=== PATIENT | male | born 1985 | race Caucasian/White ===

== ENCOUNTER 2016-05-29 19:15 | Inpatient (IN) | payer OTHER ==
[~2016-05-29] VITALS: Ht 175.3 cm; Wt 217.7 kg
[~2016-05-29 19:15] MED LIST: ALBU8.5H4 INH; AMLO5TAB4 PO; ARIP30TA PO; BRIM5DRO3 RIGHTEYE; BUPR100T5 PO; CHLO10TA5 PO; CLON0.12 PO; DIVA250T4 PO; DOCU-25 PO; FOLI1CAP7 PO; HYDR25SU13 RC; SULF1TAB48 PO; TIMO5DRO31 RIGHTEYE; TRAZ150T75 PO
--- NOTE | 2016-05-29 19:29 | NUR ---
called for triage; sleeping.
--- NOTE | 2016-05-29 20:00 | NUR ---
31 YO MALE BB SE;F. PT IS ALRET X 3, C/O RIGHT LOWER LEG PAIN. STATES THE PAIN IS CHRONIC IN NATURE S/O ACCIDENT THAT HAPPENED2 YEARS AGO. NOTED DEFORMITIES RIGHT LOWER LEG. SKIN WARM AND DRY, RR EVEN AND UNLAORED. AWAITING ORDERS FROM PROVIDER
[2016-05-29] MEDS ORDERED: VANCOMYCIN 1 GM in IV D5W 250 ML IV ONE (21:00)
[2016-05-29] MEDS ORDERED: PIPERACILLIN /TAZOBACTAM 3.375 G in IV D5W 50 ML IV ONE (21:00)
[2016-05-29 21:02] LABS: BASOPHILS # (AUTO) 0.2 /CMM (0.0-0.2); BASOPHILS % (AUTO) 2.4 % (0.0-2.0); EOSINOPHILS # (AUTO) 0.1 /CMM (0.0-0.7); EOSINOPHILS % (AUTO) 0.9 % (0.0-6.0); HEMATOCRIT 45 % (39-51); HEMOGLOBIN 14.4 g/dL (13.5-17.5); LYMPHOCYTES # (AUTO) 1.5 /CMM (0.8-4.8); LYMPHOCYTES % (AUTO) 18.1 % (20.0-44.0); MEAN CORPUSCULAR HEMOGLOBIN 26 PG (26.0-33.0); MEAN CORPUSCULAR HGB CONC 32 g/dl (31.0-36.0); MEAN CORPUSCULAR VOLUME 81 fL (80-96); MONOCYTES # (AUTO) 0.7 /CMM (0.1-1.30); MONOCYTES % (AUTO) 8.3 % (2.0-12.0); NEUTROPHILS # (AUTO) 5.9 /CMM (1.8-8.9); NEUTROPHILS % (AUTO) 70.3 % (43.0-81.0); PLATELET COUNT (AUTO) 179 /CMM (150-450); RDW COEFFICIENT OF VARIATION 15.4 (11.5-15.0); RED BLOOD CELL COUNT(AUTO) 5.58 MIL/uL (4.5-6.0); WHITE BLOOD COUNT (AUTO) 8.4 K/uL (4.3-11.0)
[2016-05-29] MEDS ORDERED: IV D5W 50 ML IV ONE (21:05)
[2016-05-29] MEDS ORDERED: IV D5W 250 ML IV ONE (21:05)
[2016-05-29] MEDS ORDERED: PIPERACILLIN /TAZOBACTAM 3.375 G VIAL IV ONE (21:05)
[2016-05-29] MEDS ORDERED: VANCOMYCIN 1 GM VIAL ONE (21:05)
[2016-05-29] MEDS ORDERED: IV SET PRIMARY PUMP SET 1 EA INFUS.SET MC ONE (21:05)
[2016-05-29 21:11] LABS: CALCIUM, SERUM 9.1 mg/dL (8.5-10.1); CREATININE 0.9 mg/dL (0.6-1.3); POTASSIUM 3.9 mmol/L (3.5-5.1)
[2016-05-29 21:15] LABS: INR 0.92 (0.87-1.13); PROTHROMBIN TIME 9.6 SECS (9.5-12.7)
--- NOTE | 2016-05-29 21:15 | NUR ---
GOING TO M/S BED 318
--- NOTE | 2016-05-29 21:20 | NUR ---
22G LEFT WRIST IV STARTED. MEDICTED PT ORDERED
[2016-05-29] MEDS ORDERED: diphenhydrAMINE HCL 50 MG/ML VIAL IV ONE (22:00)
[2016-05-29 22:15] VITALS: BP 133/74
[2016-05-29] MEDS ORDERED: ACETAMINOPHEN 325 MG TABLET PO PRN (22:30)
[2016-05-29] MEDS ORDERED: ONDANSETRON HCL/PF 4 MG/2 ML VIAL IVP PRN (22:30)
[2016-05-29] MEDS ORDERED: ZOLPIDEM TARTRATE 5 MG TABLET PO PRN (22:30)
[2016-05-29] MEDS ORDERED: DIVA500T2 PO (23:03)
[2016-05-29] MEDS ORDERED: ATOR20TA PO (23:03)
[2016-05-29] MEDS ORDERED: GABA-534 PO (23:03)
[2016-05-29] MEDS ORDERED: BUPR150T5 PO (23:03)
[2016-05-29] MEDS ORDERED: TRAZ-144 PO (23:03)
[2016-05-29] MEDS ORDERED: NAPR375T3 PO (23:03)
[2016-05-29] MEDS ORDERED: ARIP30TA PO (23:03)
[2016-05-29] MEDS ORDERED: HYDR12.55 PO (23:03)
[2016-05-29] MEDS ORDERED: LISI-607 PO (23:03)
[2016-05-29] MEDS ORDERED: CLON0.5T PO (23:03)
[2016-05-29] MEDS ORDERED: BENZ2TAB7 PO (23:03)
[2016-05-29] MEDS ORDERED: AMLO10TA4 PO (23:03)
[2016-05-29] MEDS ORDERED: BRIM5DRO3 EACHEYE (23:06)
[2016-05-29] MEDS ORDERED: ALBU2.5V38 IH (23:06)
[2016-05-29] MEDS ORDERED: TIMO5DRO4 EACHEYE (23:06)
[2016-05-29] MEDS ORDERED: ASPI-605 PO (23:06)
[2016-05-29] MEDS ORDERED: DOCU-25 PO (23:06)
[2016-05-29] MEDS ORDERED: IPRA12.9 IH (23:06)
[2016-05-29] MEDS ORDERED: NAPROXEN 375 MG TABLET PO PRN (23:30)
[2016-05-29] MEDS ORDERED: clonazePAM 0.5 MG TABLET PO PRN (23:30)
[2016-05-29] MEDS ORDERED: buPROPion SR 150 MG TABLET.ER PO ONE (23:47)
[2016-05-29] MEDS ORDERED: DIVALPROEX SODIUM 500 MG TABLET.DR PO ONE (23:48)
[2016-05-29] MEDS ORDERED: TRAZODONE 50 MG TABLET ONE (23:49)
[2016-05-29] MEDS ORDERED: clonazePAM 0.5 MG TABLET ONE (23:49)
[2016-05-29] MEDS: DIVALPROEX SODIUM 500 MG TABLET.DR PO SCH (23:55)
[2016-05-29] MEDS: buPROPion SR 150 MG TABLET.ER PO SCH (23:55)
[2016-05-29] MEDS: TRAZODONE 50 MG TABLET PO SCH (23:56)
[2016-05-30] MEDS ORDERED: HYDROCODONE/APAP 5/325MG 1 EACH TABLET ONE (01:50)
[2016-05-30] MEDS: HYDROCODONE/APAP 5/325MG 1 EACH TABLET PO PRN ×2 (01:54→11:28)
[2016-05-30] MEDS: PIPERACILLIN /TAZOBACTAM 3.375 G in IV D5W 50 ML IV SCH ×3 (03:00→05:45)
[2016-05-30] MEDS ORDERED: IV D5W 50 ML IV ONE (03:17)
[2016-05-30] MEDS ORDERED: PIPERACILLIN /TAZOBACTAM 3.375 G VIAL IV ONE (03:17)
[2016-05-30] MEDS ORDERED: SECONDARY IV SET 1 EA INFUS.SET MC ONE ×2 (03:17→13:16)
[2016-05-30] MEDS ORDERED: IV NS 0.9% 250 ML IV ONE ×2 (03:18→13:15)
[2016-05-30] MEDS ORDERED: IV SET PRIMARY PUMP SET 1 EA INFUS.SET MC ONE ×2 (03:18→13:15)
--- NOTE | 2016-05-30 06:00 | NUR ---
MS RN NOTES PT REFUSING HIS ZOSYN. PT SAID HIS THROAT IS ITCHING WITH ZOSYN AND GETS SOB. LAKEISHA SHIPPING ORDER CLERK SPOT FACER FOR [facility] NOTIFIED. WILL CHANGE ORDERS PER SHIPPING ORDER CLERK. WILL CONTINUE TO MONITOR.
[2016-05-30] MEDS ORDERED: SULFAMETHOXAZOLE/TRIMETHOPRIM 5 ML in IV D5W 250 ML IV SCH (06:30)
--- NOTE | 2016-05-30 06:47 | NUR ---
MS RN NOTES AWAKE & RESPONSIVE. NOT IN ANY DISTRESS. NO SOB NOTED. DENIES ANY PAIN OR DISCOMFORT AT THIS TIME. MONITORED ACCORDINGLY. CALL LIGHT WITHIN REACH. BED IN LOWEST POSITION. SR UP X 3 FOR SAFETY WITH BED ALARM ON. WILL ENDORSE TO NEXT SHIFT.
[2016-05-30 07:18] LABS: BASOPHILS % (AUTO) 0.4 % (0.0-2.0); EOSINOPHILS # (AUTO) 0.1 /CMM (0.0-0.7); EOSINOPHILS % (AUTO) 1.3 % (0.0-6.0); HEMATOCRIT 40 % (39-51); HEMOGLOBIN 12.9 g/dL (13.5-17.5); LYMPHOCYTES # (AUTO) 1.4 /CMM (0.8-4.8); MEAN CORPUSCULAR HEMOGLOBIN 26 PG (26.0-33.0); MEAN CORPUSCULAR HGB CONC 33 g/dl (31.0-36.0); MEAN CORPUSCULAR VOLUME 81 fL (80-96); MONOCYTES # (AUTO) 0.5 /CMM (0.1-1.30); MONOCYTES % (AUTO) 7.7 % (2.0-12.0); NEUTROPHILS # (AUTO) 4.9 /CMM (1.8-8.9); NEUTROPHILS % (AUTO) 70.6 % (43.0-81.0); PLATELET COUNT (AUTO) 173 /CMM (150-450); RDW COEFFICIENT OF VARIATION 16.3 (11.5-15.0); RED BLOOD CELL COUNT(AUTO) 4.89 MIL/uL (4.5-6.0)
[2016-05-30 07:29] LABS: CALCIUM, SERUM 8.7 mg/dL (8.5-10.1); CREATININE 0.8 mg/dL (0.6-1.3); MAGNESIUM 1.8 mg/dL (1.8-2.4); PHOSPHORUS 4.7 mg/dL (2.5-4.9)
--- NOTE | 2016-05-30 07:30 | NUR ---
MS NURSE OPENING NOTES RECEIVED REPORT FROM NIGHT NURSE. PATIENT RESTING IN BED. SIDE RAILS UP, CALL LIGHTS WITHIN REACH. NO SIGNS OF DISTRESS. WILL CONTINUE PLAN OF CARE FOR THE REST OF THE DAY.
[2016-05-30 08:00] VITALS: BP 130/69
[2016-05-30] MEDS ORDERED: VANCOMYCIN 1 GM in IV D5W 250 ML IV SCH (09:00)
--- NOTE | 2016-05-30 10:00 | NUR ---
WOUND CARE CONSULT: PATIENT SEEN AND SKIN ASSESSMENT DONE. PATIENT ALERT, ORIENTED, CONTINENT, AMBULATORY, INDEPENDENT WITH BED MOBILITY, MEENA 18, WEIGHS 427 LBS. NURSING STAFF ORDERED BARIMAXX BED II AND WILL BE PLACED WHEN AVAILABLE IN THE UNIT. SEE TODAY'S SKIN ASSESSMENT IN PCS ALONG WITH RECOMMENDATIONS DISCUSSED WITH NURSING STAFF. MD IN AGREEMENT WITH PLAN OF CARE. Addendum: 05/30/16 at 1006 by SHAWNA PIERCE WNDNU Amended: Links added.
[2016-05-30] MEDS ORDERED: FEE PK DOSING 1 MIN EA MC ONE (10:11)
[2016-05-30] MEDS ORDERED: NAPROXEN 375 MG TABLET PO PRN (10:57)
[2016-05-30] MEDS ORDERED: VANCOMYCIN 1.25 GM in IV D5W 500 ML IV SCH (11:00)
[2016-05-30] MEDS: buPROPion SR 150 MG TABLET.ER PO SCH ×2 (11:22→17:47)
[2016-05-30] MEDS: PANTOPRAZOLE 40 MG TABLET.DR PO SCH (11:22)
[2016-05-30] MEDS: DIVALPROEX SODIUM 500 MG TABLET.DR PO SCH (11:23)
[2016-05-30] MEDS: ASPIRIN EC 81 MG TABLET.DR PO SCH (11:24)
[2016-05-30] MEDS: VIT B CMPLX 3/FA/VIT C/BIOTIN 1 TAB TABLET PO SCH (11:24)
[2016-05-30] MEDS: HYDROCHLOROTHIAZIDE 25 MG TABLET PO SCH ×3 (11:26→17:46)
[2016-05-30] MEDS: SULFAMETH/TRIMETH 800/160 MG 1 UDTAB TABLET PO SCH ×3 (11:27→20:35)
[2016-05-30] MEDS: LISINOPRIL (5MG) 5 MG TABLET PO SCH (11:27)
[2016-05-30] MEDS: DOCUSATE SODIUM 100 MG CAPSULE PO SCH ×2 (11:29→17:47)
[2016-05-30] MEDS: GABAPENTIN 300 MG CAPSULE PO SCH ×3 (11:29→17:46)
[2016-05-30] MEDS: AMLODIPINE BESYLATE 10 MG TABLET PO SCH (11:34)
[2016-05-30] MEDS: BENZTROPINE MESYLATE (1 MG) 1 MG TABLET PO SCH (11:35)
[2016-05-30] MEDS: UREA 10% -AHA 4% CREAM 57 GM TUBE TP SCH ×2 (11:44→17:50)
[2016-05-30] MEDS: TIMOLOL 0.5% SOLN OPHTH 5 ML BOTTLE EACHEYE SCH ×2 (11:45→17:48)
[2016-05-30] MEDS: Z GUARD REMEDY 2 OZ OINT TP PRN ×2 (11:47→17:48)
[2016-05-30] MEDS ORDERED: DIVALPROEX SODIUM 500 MG TABLET.DR PO SCH (13:00)
[2016-05-30] MEDS ORDERED: IPRATROPIUM NEB FS 0.5 MG/2.5 ML AMPUL.NEB NEB PRN (13:00)
[2016-05-30] MEDS ORDERED: ALBUTEROL FS 2.5 MG/3 ML VIAL.NEB NEB PRN (13:30)
[2016-05-30 16:00] VITALS: BP 104/76
[2016-05-30] MEDS: BRIMONIDINE TARTRATE OPHT SOLN 5 ML BOTTLE OP SCH (17:39)
--- NOTE | 2016-05-30 19:05 | NUR ---
RN NOTE RECEIVED REPORT. PT AAOX4, NO C/O OF PAIN OR DISCOMFORT AT THIS TIME. BREATHING EVEN AND NON-LABORED. BOUCHRA ML INTACT AND PATENT. HOB ELEVATED 30 DEGREES. NO DISTRESS - CALL LIGHT IN REACH, WILL CONT TO MONITOR.
[2016-05-30 20:00] VITALS: BP 124/79
[2016-05-30] MEDS: TRAZODONE 50 MG TABLET PO SCH (21:28)
[2016-05-30] MEDS ORDERED: ARIPIPRAZOLE 5 MG TABLET PO SCH (22:00)
[2016-05-30] MEDS ORDERED: ATORVASTATIN 10 MG TABLET PO SCH (22:00)
--- NOTE | 2016-05-31 01:55 | NUR ---
RN NOTE PT RESTING COMFORTABLY IN BED. NO DISTRESS NOTED. WILL MONITOR.
--- NOTE | 2016-05-31 04:45 | NUR ---
RN NOTE PT C/O CHEST PAIN 5/10 THAT RADIATES DOWN ARM, FEELS TINGLING. BP 115/60, 87, 98%. MD AWARE. ORDERS CARRIED OUT. EKG STAT. RT PAGED.
[2016-05-31] MEDS ORDERED: MORPHINE SULFATE INJ 2 MG/ML DISP.SYRIN ONE (04:52)
[2016-05-31] MEDS ORDERED: MORPHINE SULFATE INJ 2 MG/ML DISP.SYRIN IV PRN (05:00)
--- NOTE | 2016-05-31 05:00 | NUR ---
RN NOTE EKG RESULTED E - SR. MORPHINE 2 MG GIVEN IV, WITH POSITIVE EFFECT. PT NOT C/O CP OR SOB. NON-DIAPHORETIC ON 3L NC. WILL CONT TO MONITOR. TROP BLOOD LEVEL WILL BE DRAWN SOON.
--- NOTE | 2016-05-31 06:02 | NUR ---
RN NOTE 0500 PRN MORPHINE EFFECTIVE. PT DENIES CP/SOB, NO TINGLING IN ARM. SKIN WARM TO TOUCH, NON-DIAPHORETIC. BREATHING EVEN AND NON-LABORED. ON 3L NC, SATTING WELL. L UA ML INTACT AND PATENT. WOUND CARE COMPLETE, SAFETY MEASURES RENDERED. PT AWARE ABOUT BEDSIDE DEBRIDEMENT TODAY. ALL NEEDS ATTENDED TO, WILL F/U WITH DAYS SHIFT FOR PREETI.
[2016-05-31 06:59] LABS: CALCIUM, SERUM 8.6 mg/dL (8.5-10.1); CREATININE 0.9 mg/dL (0.6-1.3); POTASSIUM 4.1 mmol/L (3.5-5.1)
[2016-05-31 07:02] LABS: BASOPHILS % (AUTO) 0.2 % (0.0-2.0); EOSINOPHILS # (AUTO) 0.1 /CMM (0.0-0.7); EOSINOPHILS % (AUTO) 1.5 % (0.0-6.0); HEMATOCRIT 40 % (39-51); HEMOGLOBIN 12.6 g/dL (13.5-17.5); LYMPHOCYTES # (AUTO) 1.4 /CMM (0.8-4.8); LYMPHOCYTES % (AUTO) 25.8 % (20.0-44.0); MEAN CORPUSCULAR HEMOGLOBIN 26 PG (26.0-33.0); MEAN CORPUSCULAR HGB CONC 32 g/dl (31.0-36.0); MEAN CORPUSCULAR VOLUME 81 fL (80-96); MONOCYTES # (AUTO) 0.4 /CMM (0.1-1.30); MONOCYTES % (AUTO) 7.8 % (2.0-12.0); NEUTROPHILS # (AUTO) 3.5 /CMM (1.8-8.9); NEUTROPHILS % (AUTO) 64.7 % (43.0-81.0); PLATELET COUNT (AUTO) 185 /CMM (150-450); RDW COEFFICIENT OF VARIATION 15.7 (11.5-15.0); RED BLOOD CELL COUNT(AUTO) 4.92 MIL/uL (4.5-6.0); WHITE BLOOD COUNT (AUTO) 5.4 K/uL (4.3-11.0)
--- NOTE | 2016-05-31 07:30 | NUR ---
PT RECEIVED RESTING COMFORTABLY IN BED WITH EYES CLOSED. NO S/S OR C/O PAIN OR DISTRESS NOTED. SIDE RAILS UP X2, CALL LIGHT LEFT WITHIN REACH. WILL CONTINUE PLAN OF CARE.
[2016-05-31 08:00] VITALS: BP 114/66
[2016-05-31] MEDS ORDERED: HYDROGEL DRESSING 90 GM TUBE TP SCH (09:00)
[2016-05-31] MEDS: VIT B CMPLX 3/FA/VIT C/BIOTIN 1 TAB TABLET PO SCH (09:18)
[2016-05-31] MEDS: SULFAMETH/TRIMETH 800/160 MG 1 UDTAB TABLET PO SCH ×2 (09:18→12:16)
[2016-05-31] MEDS: DOCUSATE SODIUM 100 MG CAPSULE PO SCH (09:18)
[2016-05-31] MEDS: AMLODIPINE BESYLATE 10 MG TABLET PO SCH (09:19)
[2016-05-31] MEDS: LISINOPRIL (5MG) 5 MG TABLET PO SCH (09:19)
[2016-05-31] MEDS: ASPIRIN EC 81 MG TABLET.DR PO SCH (09:19)
[2016-05-31] MEDS: GABAPENTIN 300 MG CAPSULE PO SCH ×2 (09:20→12:16)
[2016-05-31] MEDS: HYDROCHLOROTHIAZIDE 25 MG TABLET PO SCH ×2 (09:20→12:25)
[2016-05-31] MEDS: buPROPion SR 150 MG TABLET.ER PO SCH (09:21)
[2016-05-31] MEDS: BENZTROPINE MESYLATE (1 MG) 1 MG TABLET PO SCH (09:26)
[2016-05-31] MEDS: TIMOLOL 0.5% SOLN OPHTH 5 ML BOTTLE EACHEYE SCH (09:29)
[2016-05-31] MEDS: BRIMONIDINE TARTRATE OPHT SOLN 5 ML BOTTLE OP SCH (09:30)
[2016-05-31] MEDS: UREA 10% -AHA 4% CREAM 57 GM TUBE TP SCH (09:34)
[2016-05-31] MEDS: Z GUARD REMEDY 2 OZ OINT TP PRN (09:35)
[2016-05-31] MEDS: PANTOPRAZOLE 40 MG TABLET.DR PO SCH (09:40)
--- NOTE | 2016-05-31 12:10 | NUR ---
called for patient for ct @ 1200 , Nurse called back and stated that the patients weighs 466lbs, which ecxeeds our weight limit for ct table. nurse was nitified and stated he would talk to ordering MD.
[2016-05-31 12:25] VITALS: BP 110/79
--- NOTE | 2016-05-31 15:00 | NUR ---
DISCHARGE INSTRUCTIONS GIVEN ORDERED. ENCOURAGED TO FOLLOW UP WITH PMD INSTRUCTED. ALL QUESTIONS AND CONCERNS ADDRESSED. PATIENT VERBALIZED UNDERSTANDING. MEDICATION RECONCILIATION FORM COMPLETED AND COPY GIVEN TO PATIENT. IV REMOVED WITH CATHETER INTACT, PRESSURE DRESSING APPLIED. PATIENT TAKEN TO VEHICLE VIA WHEELCHAIR WITH ALL PERSONAL BELONGINGS, ACCOMPANIED BY STAFF AND FAMILY MEMBER. NO DISTRESS NOTED AT TIME OF DEPARTURE. Addendum: 06/02/16 at 1011 by ALIDA BORDEN RN PT REFUSED DISCHARGED PHOTOS STATING HE HAD JUST DRESSED HIMSELF AND WAS IN A HURRY TO LEAVE.
[2016-05-31] MEDS ORDERED: DIVALPROEX SODIUM 500 MG TABLET.DR PO SCH (22:00)
== END 2016-05-31 16:22 | disposition home or self-care (01) | DRG 383 ==
LOC: ER 19:17 → MED 21:22
PROVIDERS: ADMIT Nurse Practitioner Acute Care; ATTEND Nurse Practitioner Acute Care
PROC: 05H633Z Insertion of Infusion Device into Left Subclavian Vein, Percutaneous Approach (ICD-10-PCS; principal; 2016-05-30)
PROC: 0JBN0ZZ Excision of Right Lower Leg Subcutaneous Tissue and Fascia, Open Approach (ICD-10-PCS; 2016-05-31)
DX: L03.115 Cellulitis of right lower limb (principal); N17.0 Acute kidney failure with tubular necrosis; E11.42 Type 2 diabetes mellitus with diabetic polyneuropathy; I50.9 Heart failure, unspecified; I11.0 Hypertensive heart disease with heart failure; E66.2 Morbid (severe) obesity with alveolar hypoventilation; M19.90 Unspecified osteoarthritis, unspecified site; F31.9 Bipolar disorder, unspecified; F17.210 Nicotine dependence, cigarettes, uncomplicated; H40.9 Unspecified glaucoma; I25.10 Atherosclerotic heart disease of native coronary artery without angina pectoris; J45.909 Unspecified asthma, uncomplicated; Z86.73 Personal history of transient ischemic attack (TIA), and cerebral infarction without residual deficits; H54.41 Blindness, right eye, normal vision left eye; I25.2 Old myocardial infarction; I83.218 Varicose veins of right lower extremity with both ulcer of other part of lower extremity and inflammation; L97.819 Non-pressure chronic ulcer of other part of right lower leg with unspecified severity; R53.1 Weakness; Z83.3 Family history of diabetes mellitus
CPT/HCPCS: 36415; 71010-TC; 73590-TC; 80048-TC; 80061-TC; 83735-TC; 84100-TC; 84484-TC; 85025-TC; 85730-TC; 87040-TC; 87070-TC; 87081-TC; 87186-TC; 94799-TC; A4606; A6248; A6402; A6403; J2270; J2543; J3370; J3490; J7050; J7060; Z7610

== ENCOUNTER 2016-07-10 05:34 | Emergency (ER) | payer OTHER ==
[~2016-07-10] VITALS: Ht 175.3 cm; Wt 217.7 kg
[~2016-07-10 05:34] MED LIST changes: +ALBU2.5V38 IH; +ASPI-605 PO; +ATOR20TA PO; +BENZ2TAB7 PO; +BRIM5DRO3 EACHEYE; -BRIM5DRO3 RIGHTEYE; -BUPR100T5 PO; +BUPR150T5 PO; -CLON0.12 PO; +CLON0.5T PO; +DIVA500T2 PO; +GABA-534 PO; +HYDR12.55 PO; +IPRA12.9 IH; +LISI-607 PO; +NAPR375T3 PO; -TIMO5DRO31 RIGHTEYE; +TIMO5DRO4 EACHEYE
[2016-07-10 05:45] VITALS: BP 141/105
== END 2016-07-10 06:21 | disposition home or self-care (01) ==
LOC: ER 05:36
DX: L97.919 Non-pressure chronic ulcer of unspecified part of right lower leg with unspecified severity (principal); I87.8 Other specified disorders of veins; L30.8 Other specified dermatitis; E66.01 Morbid (severe) obesity due to excess calories; E11.9 Type 2 diabetes mellitus without complications; I10 Essential (primary) hypertension; Z79.82 Long term (current) use of aspirin; H40.9 Unspecified glaucoma; Z86.73 Personal history of transient ischemic attack (TIA), and cerebral infarction without residual deficits; Z88.0 Allergy status to penicillin
CPT/HCPCS: A4606; Z7610

== ENCOUNTER 2017-01-13 05:20 | Emergency (ER) | payer OTHER ==
[~2017-01-13] VITALS: Ht 180.3 cm; Wt 225.9 kg
[2017-01-13 06:46] VITALS: BP 160/102
== END 2017-01-13 06:53 | disposition home or self-care (01) ==
LOC: ER 05:25
DX: L97.919 Non-pressure chronic ulcer of unspecified part of right lower leg with unspecified severity (principal); E11.622 Type 2 diabetes mellitus with other skin ulcer; H40.9 Unspecified glaucoma; I10 Essential (primary) hypertension; F17.200 Nicotine dependence, unspecified, uncomplicated; F31.9 Bipolar disorder, unspecified; F25.0 Schizoaffective disorder, bipolar type; Z79.82 Long term (current) use of aspirin; Z86.73 Personal history of transient ischemic attack (TIA), and cerebral infarction without residual deficits; Z88.0 Allergy status to penicillin; Z88.8 Allergy status to other drugs, medicaments and biological substances
CPT/HCPCS: A4606; A6253; A6402; Z7610

== ENCOUNTER 2017-01-27 05:56 | Emergency (ER) | payer OTHER ==
[~2017-01-27] VITALS: Ht 180.3 cm; Wt 226.8 kg
[2017-01-27 06:00] VITALS: BP 165/102
== END 2017-01-27 06:43 | disposition home or self-care (01) ==
LOC: ER 05:59
DX: Z48.01 Encounter for change or removal of surgical wound dressing (principal); E11.622 Type 2 diabetes mellitus with other skin ulcer; L97.919 Non-pressure chronic ulcer of unspecified part of right lower leg with unspecified severity; I10 Essential (primary) hypertension; H40.9 Unspecified glaucoma; F25.0 Schizoaffective disorder, bipolar type; F17.200 Nicotine dependence, unspecified, uncomplicated; Z79.82 Long term (current) use of aspirin; Z86.73 Personal history of transient ischemic attack (TIA), and cerebral infarction without residual deficits; Z88.0 Allergy status to penicillin
CPT/HCPCS: 99281; A4606; Z7610; Z7502

== ENCOUNTER 2017-07-19 00:11 | Emergency (ER) | payer OTHER ==
[~2017-07-19 00:11] MED LIST changes: -ARIP30TA PO; +ARIP30TA3 PO; +DOCU-141 PO; -DOCU-25 PO; +NAPR-1192 PO; -NAPR375T3 PO
--- NOTE | 2017-07-19 01:21 | NUR ---
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
== END 2017-07-19 01:23 | disposition left against medical advice (07) ==
LOC: ER 00:14
DX: Z53.21 Procedure and treatment not carried out due to patient leaving prior to being seen by health care provider (principal); E11.9 Type 2 diabetes mellitus without complications; F31.9 Bipolar disorder, unspecified; F25.9 Schizoaffective disorder, unspecified; H40.9 Unspecified glaucoma; F17.200 Nicotine dependence, unspecified, uncomplicated; I10 Essential (primary) hypertension; Z79.82 Long term (current) use of aspirin; Z86.73 Personal history of transient ischemic attack (TIA), and cerebral infarction without residual deficits; Z88.0 Allergy status to penicillin; Z98.890 Other specified postprocedural states

== ENCOUNTER 2017-12-17 01:52 | Emergency (ER) | payer OTHER ==
[~2017-12-17] VITALS: Ht 175.3 cm; Wt 209.6 kg
[2017-12-17] MEDS ORDERED: ALBUTEROL FS 2.5 MG/3 ML VIAL.NEB NEB ONE (02:00)
[2017-12-17] MEDS ORDERED: predniSONE 20 MG TABLET PO ONE (02:00)
[2017-12-17] MEDS ORDERED: IPRATROPIUM NEB FS 0.5 MG/2.5 ML AMPUL.NEB NEB ONE (02:00)
--- NOTE | 2017-12-17 02:00 | NUR ---
CALLED RT FOR BREATHING TX.
[2017-12-17] MEDS ORDERED: predniSONE 20 MG TABLET ONE (02:06)
--- NOTE | 2017-12-17 02:06 | NUR ---
RT AT BEDSIDE FOR BREATHING TX.
--- NOTE | 2017-12-17 02:06 | NUR ---
RADIOLOGY AT BEDSIDE FOR CXR
[2017-12-17] MEDS ORDERED: ALBUTEROL FS 2.5 MG/3 ML VIAL.NEB ONE (02:07)
[2017-12-17] MEDS ORDERED: ALBUTEROL FS 2.5 MG/0.5 ML VIAL.NEB ONE (02:07)
[2017-12-17 02:51] VITALS: BP 132/70
== END 2017-12-17 02:57 | disposition home or self-care (01) ==
LOC: ER 01:57
DX: J45.901 Unspecified asthma with (acute) exacerbation (principal); E66.01 Morbid (severe) obesity due to excess calories; H54.8 Legal blindness, as defined in USA; I10 Essential (primary) hypertension; E11.9 Type 2 diabetes mellitus without complications; F31.9 Bipolar disorder, unspecified; R45.851 Suicidal ideations; F25.9 Schizoaffective disorder, unspecified; F17.200 Nicotine dependence, unspecified, uncomplicated; Z88.1 Allergy status to other antibiotic agents; Z91.018 Allergy to other foods; Z88.0 Allergy status to penicillin; Z88.8 Allergy status to other drugs, medicaments and biological substances; Z79.82 Long term (current) use of aspirin; Z86.73 Personal history of transient ischemic attack (TIA), and cerebral infarction without residual deficits
CPT/HCPCS: 71045-TC; A4606; Z7610

== ENCOUNTER 2018-02-21 02:51 | Emergency (ER) | payer OTHER ==
--- NOTE | 2018-02-21 04:10 | NUR ---
CALLED PTS NAME THREE TIMES, NO RESPONSE. WILL TRY AGAIN AT A LATER TIME.
--- NOTE | 2018-02-21 04:50 | NUR ---
CALLED PATIENTS NAME, NO RESPONSE. NO PT SEEN IN THE WAITING ROOM. PT LEFT BEFORE BEING SEEN BY THE MD
== END 2018-02-21 05:14 | disposition left against medical advice (07) ==
LOC: ER 02:53
DX: Z53.21 Procedure and treatment not carried out due to patient leaving prior to being seen by health care provider (principal); J45.909 Unspecified asthma, uncomplicated; H54.8 Legal blindness, as defined in USA; F31.9 Bipolar disorder, unspecified; F20.9 Schizophrenia, unspecified; E11.9 Type 2 diabetes mellitus without complications; I10 Essential (primary) hypertension; Z98.890 Other specified postprocedural states; Z86.73 Personal history of transient ischemic attack (TIA), and cerebral infarction without residual deficits

== ENCOUNTER 2018-02-21 05:16 | Emergency (ER) | payer OTHER ==
[~2018-02-21] VITALS: Ht 175.3 cm; Wt 226.8 kg
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
--- NOTE | 2018-02-21 05:44 | NUR ---
BLOOD DRAWN BY GENERATOR REPAIRER. U/A SAMPLE SENT TO LAB.
--- NOTE | 2018-02-21 05:45 | NUR ---
SEEN AND EXAMINED BY DR OCAMPO. RE WRAP AFFECTED SITES OF RLE SECONDARY TO CELLULITIS. WOUNDS ARE CLEAN AND PINKISH IN COLOR, NO DISCHARGES NOTED. WILL CONTINUE TO MONITOR ACCORDINGLY.
--- NOTE | 2018-02-21 05:47 | NUR ---
RLE WOUND CARE WET TO DRY DRESSING APPLIED ORDERED. WRAPPED WITH KERLEX.
[2018-02-21 05:59] LABS: BASOPHILS % (AUTO) 0.3 % (0.0-2.0); EOSINOPHILS % (AUTO) 0.7 % (0.0-6.0); HEMATOCRIT 42 % (39-51); HEMOGLOBIN 13.3 g/dL (13.5-17.5); LYMPHOCYTES # (AUTO) 2.1 /CMM (0.8-4.8); LYMPHOCYTES % (AUTO) 23.2 % (20.0-44.0); MEAN CORPUSCULAR HGB CONC 32 g/dl (31.0-36.0); MEAN CORPUSCULAR VOLUME 79 fL (80-96); MONOCYTES # (AUTO) 0.6 /CMM (0.1-1.30); MONOCYTES % (AUTO) 6.6 % (2.0-12.0); NEUTROPHILS # (AUTO) 6.3 /CMM (1.8-8.9); NEUTROPHILS % (AUTO) 69.2 % (43.0-81.0); PLATELET COUNT (AUTO) 163 /CMM (150-450); RED BLOOD CELL COUNT(AUTO) 5.25 MIL/uL (4.5-6.0); WHITE BLOOD COUNT (AUTO) 9.1 K/uL (4.3-11.0)
[2018-02-21 06:09] LABS: CALCIUM, SERUM 9.1 mg/dL (8.5-10.1); CARBON DIOXIDE 31 mmol/L (21-32); CHLORIDE 99 mmol/L (98-107); CREATININE 0.8 mg/dL (0.6-1.3); GLUCOSE 185 mg/dL (74-106); SODIUM SERUM 138 mmol/L (136-145); UREA NITROGEN, BLOOD 24 mg/dL (7-18)
--- NOTE | 2018-02-21 06:16 | NUR ---
PATIENT NOTED COMFORTABLY ASLEEP ON ER BED.
[2018-02-21 06:19] LABS: ALANINE AMINOTRANSFERASE 35 U/L (12-78); ALBUMIN 3.3 g/dL (3.4-5.0); ALCOHOL, BLOOD < 3 mg/dL (0-0); ALKALINE PHOSPHATASE 104 U/L (46-116); ASPARTATE AMINOTRANSFERASE 40 U/L (15-37); BILIRUBIN,DIRECT 0.1 mg/dL (0.0-0.2); BILIRUBIN,TOTAL 0.5 mg/dL (0.2-1.0); TOTAL PROTEIN, SERUM 7.4 g/dL (6.4-8.2)
[2018-02-21 06:20] LABS: ACETAMINOPHEN 0 ug/ml (10-30); SALICYLATE 0.2 mg/dL (2.8-20.0)
--- NOTE | 2018-02-21 07:26 | NUR ---
ENDORSED TO BARBARA SURESH FOR PREETI.
--- NOTE | 2018-02-21 07:28 | NUR ---
RECEIVED REPORT FROM BARBARA CUI FOR PREETI, PT IS AAOX4, NOT IN RESPIRATORY DISTRESS, VS STABLE, KEPT RESTED AND COMFORTABLE, AWAITING ER MD'S EVAL.
--- NOTE | 2018-02-21 08:55 | NUR ---
SO JABIER AGGARWAL CALLED,SPOKE WITH IVY,STEPHY, WAITING ON [facility] TO FINISH REVIEWING CLINICALS,APPROXIMATELY 45 MINUTES PER IVY
--- NOTE | 2018-02-21 11:09 | NUR ---
CALLED FOR FOOD TRAY
--- NOTE | 2018-02-21 11:13 | NUR ---
[facility] [phone]
--- NOTE | 2018-02-21 11:50 | NUR ---
PATIENTS SISTER SO CALLED AND LEFT CONTACT INFORMATION
[2018-02-21 13:46] LABS: APPEARANCE,URINE CLEAR (CLEAR); BILIRUBIN,URINE NEGATIVE (NEGATIVE); BLOOD, URINE NEGATIVE Ery/uL (NEGATIVE); COLOR,URINE YELLOW (YELLOW); KETONES,URINE NEGATIVE (NEGATIVE); LEUKOCYTE ESTERASE ,URINE NEGATIVE (NEGATIVE); NITRITE, URINE NEGATIVE (NEGATIVE); PH,URINE 7.5 (5.0-8.0); PROTEIN,URINE NEGATIVE (NEGATIVE); UGLUCOSE NEGATIVE (NEGATIVE); UROBILINOGEN,URINE 0.2 EU/dL (0.2)
--- NOTE | 2018-02-21 14:26 | NUR ---
PATIENT WILL BE TRANSFERED TO [facility] ROOM [id number] NUMBER FOR REPORT IS NURSE ADAMS.
--- NOTE | 2018-02-21 14:38 | NUR ---
CALLED [facility] FOR TRANSPORT ETA OF 1830 WAS GIVEN. TRIP#[id number]
--- NOTE | 2018-02-21 15:00 | NUR ---
REPORT GIVEN TO BARBARA ADAMS FOR PREETI.
[2018-02-21 16:55] VITALS: BP 129/76
--- NOTE | 2018-02-21 17:16 | NUR ---
PT DECIDED TO GO HOME AND DOESNT WANT TO WAIT FOR THE AMBULANE GLO AT 1830H. LOOKING FOR HIS CELLPHONE BUT NO WHERE TO BE FOUND, WALK HIMSELF OUTSIDE THE HOSPITAL.
== END 2018-02-21 18:02 | disposition left against medical advice (07) ==
LOC: ER 05:20
DX: F32.9 Major depressive disorder, single episode, unspecified (principal); E11.622 Type 2 diabetes mellitus with other skin ulcer; L97.919 Non-pressure chronic ulcer of unspecified part of right lower leg with unspecified severity; E66.01 Morbid (severe) obesity due to excess calories; I10 Essential (primary) hypertension; J45.909 Unspecified asthma, uncomplicated; M86.9 Osteomyelitis, unspecified; F25.9 Schizoaffective disorder, unspecified; Z98.890 Other specified postprocedural states; Z88.8 Allergy status to other drugs, medicaments and biological substances; Z88.1 Allergy status to other antibiotic agents; Z91.018 Allergy to other foods; Z79.82 Long term (current) use of aspirin; Z79.899 Other long term (current) drug therapy; Z86.73 Personal history of transient ischemic attack (TIA), and cerebral infarction without residual deficits; Z68.45 Body mass index [BMI] 70 or greater, adult
CPT/HCPCS: 36415; 80048-TC; 80076-TC; 80305; 81000-TC; 85025-TC; A4606; A6402; G0480; J7030; Z7610

== ENCOUNTER 2018-03-28 04:05 | Emergency (ER) | payer OTHER ==
[~2018-03-28] VITALS: Ht 175.3 cm; Wt 199.6 kg
--- NOTE | 2018-03-28 04:27 | NUR ---
PT IS C/O RT EYE PAIN AND SIGHT DIMINISHED. PT IS LEGALLY BLIND AND USES A BLIND STICK WHEN AMBULATING. VISUAL ACQUITY WAS DONE AND RESULTS IN THE CHART. MD NOTIFIED.
[2018-03-28] MEDS ORDERED: TETRACAINE HCL/PF 0.5% UD 2 ML BOTTLE OP ONE (04:30)
[2018-03-28] MEDS ORDERED: TETRACAINE HCL/PF 0.5% UD 2 ML BOTTLE ONE (04:31)
[2018-03-28] MEDS ORDERED: IBUPROFEN 400 MG TABLET ONE (04:42)
--- NOTE | 2018-03-28 04:48 | NUR ---
PT IS GOING TO CT VIA [facility]
--- NOTE | 2018-03-28 04:57 | NUR ---
PT RETURNED FROM CT.
[2018-03-28] MEDS ORDERED: IBUPROFEN 400 MG TABLET PO ONE (05:00)
--- NOTE | 2018-03-28 05:33 | NUR ---
Patient discharged to home in stable condition. Written and verbal after care instructions given. Patient verbalizes understanding of instruction. PT TO F/U WITH OPTHAMOLOGIST.
[2018-03-28 05:42] VITALS: BP 155/86
== END 2018-03-28 05:45 | disposition home or self-care (01) ==
LOC: ER 04:05
DX: E11.319 Type 2 diabetes mellitus with unspecified diabetic retinopathy without macular edema (principal); R51 Headache; I10 Essential (primary) hypertension; J45.909 Unspecified asthma, uncomplicated; M86.9 Osteomyelitis, unspecified; F25.9 Schizoaffective disorder, unspecified; F31.9 Bipolar disorder, unspecified; Z98.890 Other specified postprocedural states; Z88.1 Allergy status to other antibiotic agents; Z88.8 Allergy status to other drugs, medicaments and biological substances; Z91.018 Allergy to other foods; Z79.82 Long term (current) use of aspirin; Z79.899 Other long term (current) drug therapy; Z86.73 Personal history of transient ischemic attack (TIA), and cerebral infarction without residual deficits
CPT/HCPCS: 70450; 82962; 99284; A4606; Z7610

== ENCOUNTER 2018-04-16 06:12 | Emergency (ER) | payer OTHER ==
[~2018-04-16] VITALS: Ht 175.3 cm; Wt 202.3 kg
[2018-04-16 06:28] VITALS: BP 168/93
[2018-04-16] MEDS ORDERED: SILVER SULFADIAZINE CREAM 25 GM TUBE ONE (06:38)
[2018-04-18] MEDS ORDERED: SILVER SULFADIAZINE CREAM 25 GM TUBE TP ONE (10:30)
== END 2018-04-16 06:58 | disposition home or self-care (01) ==
LOC: ER 06:14
DX: I83.018 Varicose veins of right lower extremity with ulcer other part of lower leg (principal); I10 Essential (primary) hypertension; J45.909 Unspecified asthma, uncomplicated; E11.9 Type 2 diabetes mellitus without complications; M86.9 Osteomyelitis, unspecified; F31.9 Bipolar disorder, unspecified; F25.9 Schizoaffective disorder, unspecified; Z86.73 Personal history of transient ischemic attack (TIA), and cerebral infarction without residual deficits; Z98.890 Other specified postprocedural states; Z88.1 Allergy status to other antibiotic agents; Z88.8 Allergy status to other drugs, medicaments and biological substances; Z91.018 Allergy to other foods; Z79.82 Long term (current) use of aspirin; Z79.899 Other long term (current) drug therapy

== ENCOUNTER 2018-04-21 22:52 | Emergency (ER) | payer OTHER ==
[~2018-04-21] VITALS: Ht 175.3 cm; Wt 211.4 kg
[2018-04-21 23:34] VITALS: BP 149/88
--- NOTE | 2018-04-22 01:01 | NUR ---
PT LEFT WITHOUT BEING SEEN BY MD.
== END 2018-04-22 01:01 | disposition left against medical advice (07) ==
LOC: ER 22:57
DX: Z53.21 Procedure and treatment not carried out due to patient leaving prior to being seen by health care provider (principal); J45.909 Unspecified asthma, uncomplicated; I10 Essential (primary) hypertension; E11.9 Type 2 diabetes mellitus without complications; F41.9 Anxiety disorder, unspecified; F20.9 Schizophrenia, unspecified; H54.8 Legal blindness, as defined in USA; Z98.890 Other specified postprocedural states

== ENCOUNTER 2018-04-30 03:50 | Emergency (ER) | payer OTHER ==
[~2018-04-30] VITALS: Ht 175.3 cm; Wt 226.8 kg
[2018-04-30 04:06] VITALS: BP 148/95
[2018-04-30 04:59] LABS: APPEARANCE,URINE CLEAR (CLEAR); BILIRUBIN,URINE NEGATIVE (NEGATIVE); BLOOD, URINE NEGATIVE Ery/uL (NEGATIVE); COLOR,URINE YELLOW (YELLOW); KETONES,URINE NEGATIVE (NEGATIVE); LEUKOCYTE ESTERASE ,URINE NEGATIVE (NEGATIVE); NITRITE, URINE NEGATIVE (NEGATIVE); PROTEIN,URINE NEGATIVE (NEGATIVE); UGLUCOSE NEGATIVE (NEGATIVE); UROBILINOGEN,URINE 0.2 EU/dL (0.2)
== END 2018-04-30 05:50 | disposition home or self-care (01) ==
LOC: ER 03:50
DX: L97.919 Non-pressure chronic ulcer of unspecified part of right lower leg with unspecified severity (principal); I10 Essential (primary) hypertension; E11.9 Type 2 diabetes mellitus without complications; J45.909 Unspecified asthma, uncomplicated; M86.9 Osteomyelitis, unspecified; F25.9 Schizoaffective disorder, unspecified; F31.9 Bipolar disorder, unspecified; Z88.1 Allergy status to other antibiotic agents; Z88.8 Allergy status to other drugs, medicaments and biological substances; Z91.018 Allergy to other foods; Z79.82 Long term (current) use of aspirin; Z79.899 Other long term (current) drug therapy; Z86.73 Personal history of transient ischemic attack (TIA), and cerebral infarction without residual deficits
CPT/HCPCS: 81000-TC; A6403

== ENCOUNTER 2018-06-02 22:38 | Emergency (ER) | payer OTHER ==
[~2018-06-02] VITALS: Ht 175.3 cm; Wt 228.6 kg
--- NOTE | 2018-06-02 23:00 | NUR ---
PT PRESENTED TO THE ER WITH A C/O RLE WOUND WITH FOUL ODOR. PT IS BLIND AND USES A STICK TO AMBULATE.
[2018-06-02] MEDS ORDERED: IV NS 0.9% 500 ML BAG IV ONE (23:30)
[2018-06-02] MEDS ORDERED: KETOROLAC TROMETHAMINE INJ 30 MG/ML VIAL IV ONE (23:30)
[2018-06-02] MEDS ORDERED: VANCOMYCIN 1 GM in IV D5W 250 ML IV ONE (23:30)
[2018-06-02] MEDS ORDERED: CEFTRIAXONE 1 G in IV D5W 50 ML IV ONE (23:30)
[2018-06-02] MEDS ORDERED: CEFTRIAXONE 1GM BAG (ER ONLY) 50 ML IV ONE (23:42)
[2018-06-02] MEDS ORDERED: KETOROLAC TROMETHAMINE 15 MG/ML VIAL ONE (23:43)
[2018-06-02] MEDS ORDERED: VANCOMYCIN 1 GM VIAL ONE (23:43)
[2018-06-02 23:46] LABS: BASOPHILS % (AUTO) 0.5 % (0.0-2.0); EOSINOPHILS % (AUTO) 1.2 % (0.0-6.0); HEMATOCRIT 42 % (39-51); HEMOGLOBIN 13.6 g/dL (13.5-17.5); LYMPHOCYTES # (AUTO) 1.7 /CMM (0.8-4.8); MEAN CORPUSCULAR HGB CONC 32 g/dl (31.0-36.0); MEAN CORPUSCULAR VOLUME 82 fL (80-96); MONOCYTES # (AUTO) 0.7 /CMM (0.1-1.30); MONOCYTES % (AUTO) 8.3 % (2.0-12.0); PLATELET COUNT (AUTO) 127 /CMM (150-450); RED BLOOD CELL COUNT(AUTO) 5.17 MIL/uL (4.5-6.0); WHITE BLOOD COUNT (AUTO) 8.6 K/uL (4.3-11.0)
[2018-06-02 23:55] LABS: CALCIUM, SERUM 8.6 mg/dL (8.5-10.1); CREATININE 0.8 mg/dL (0.6-1.3)
--- NOTE | 2018-06-03 00:30 | NUR ---
PT APPEARS TO BE RESTING COMFORTABLY WITH NO S/S OF PAIN OR DISTRESS.
--- NOTE | 2018-06-03 02:30 | NUR ---
PT APPEARS TO BE SLEEPING SOUNDLY WITH NO S/S OF PAIN OR DISTRESS.
--- NOTE | 2018-06-03 05:02 | NUR ---
PT WAS DESATURATING TO 855 ON RA WHILE SLEEPING. PT WAS PLACED ON 2L O2 VIA NC AND IS SATURATING AT 98%. PT STATED THAT HE USES A CPAP AT HOME.
--- NOTE | 2018-06-03 06:01 | NUR ---
PT APPEARS TO BE RESTING COMFORTABLY WITH NO S/S OF PAIN OR DISTRESS.
--- NOTE | 2018-06-03 07:33 | NUR ---
REPORT GIVEN TO BARBARA EDEN
--- NOTE | 2018-06-03 07:40 | NUR ---
RECEIVED PT FROM NIGHT RN.
--- NOTE | 2018-06-03 11:16 | NUR ---
CALLED [facility] AND SPOKE TO LANDRY ABOUT THE STATUS OF A BARIATRIC BED. SHE INFORMED ME THAT HAS BEEN NO OPENINGS YET.
[2018-06-03] MEDS ORDERED: DIVALPROEX SODIUM 500 MG TABLET.DR PO ONE ×2 (11:50→12:00)
[2018-06-03] MEDS ORDERED: GABAPENTIN 300 MG CAPSULE ONE (11:50)
[2018-06-03] MEDS ORDERED: GABAPENTIN 100 MG CAPSULE PO ONE (12:00)
--- NOTE | 2018-06-03 12:00 | NUR ---
PT PROVIDED LUNCH
--- NOTE | 2018-06-03 12:06 | NUR ---
JAMIE, THE CM FROM [facility] CALLED TO CONFIRM THAT PT IS STILL TO BE TRANSFERRED TO [facility]. PT IS STILL CONFIRMED FOR TRANSFER, STILL AWAITING BARIATRIC BED.
--- NOTE | 2018-06-03 12:30 | NUR ---
PT REQUESTING REGULAR LUNCHTIME MEDS. INFORMED.
--- NOTE | 2018-06-03 13:26 | NUR ---
SPOKE TO LANDRY AT [facility]. SHE INFORMED ME THAT THEY ARE STILL WORKING ON GETTING A BARIATRIC BED.
--- NOTE | 2018-06-03 14:24 | NUR ---
ROLAND AYALA CALLED TO CONFIRM THAT PT WAS IN FACT GOING TO [facility] AND THAT HE IS STILL WAITING FOR A BARIATRIC BED
--- NOTE | 2018-06-03 16:08 | NUR ---
ROLAND, JAMIE CALLED. PT HAS BED 211 Marcello WARNER IS THE RN. CALL [phone]
--- NOTE | 2018-06-03 16:43 | NUR ---
PT ENDORSED TO RN AT [facility], PT TO BED 211A, WAITING FOR TRANSPORT.
--- NOTE | 2018-06-03 17:22 | NUR ---
ROLAND AYALA CALLED TO INFORM US THAT TRANSPORTATION WITH ARRIVE AT 2100.
--- NOTE | 2018-06-03 17:23 | NUR ---
CALLED [facility] TO INFORM LANDRY THAT AN AMBULANCE WILL ARRIVE AT [facility] AT 2100 TO [facility] OPERATIONS STAFF OFFICER THE PT
--- NOTE | 2018-06-03 19:16 | NUR ---
ENDORSED CARE TO BARBARA MCKINNEY.
--- NOTE | 2018-06-03 19:20 | NUR ---
PT AMBULATED TO THE BATHROOM WITH A STEADY GAIT USING HIS BLIND STICK. PT WAS GOING TO SIGN OUT AMA, BUT SPOKE TO DR JAMES. PT WILL WAIT FOR STEPHANIE.
[2018-06-03 21:42] VITALS: BP 162/95
--- NOTE | 2018-06-03 23:30 | NUR ---
ADDENDUM: Intravenous End Time Documentation: Rocephin 1 gram IVPB: start time: 2330 PM ; end time: 2359 PM IV site: RAC PIV # 20 Port # 1 Vancomycin 1 gram IVPB: start time: 2330 PM ; end time: 0029 (06/04/2018) : IV site: RAC PIV # 20; Port # 2
== END 2018-06-03 21:35 ==
LOC: ER 22:43
DX: L97.919 Non-pressure chronic ulcer of unspecified part of right lower leg with unspecified severity (principal); E66.01 Morbid (severe) obesity due to excess calories; I10 Essential (primary) hypertension; F31.9 Bipolar disorder, unspecified; F25.9 Schizoaffective disorder, unspecified; I25.10 Atherosclerotic heart disease of native coronary artery without angina pectoris; I25.2 Old myocardial infarction; I51.7 Cardiomegaly; H54.7 Unspecified visual loss; J45.909 Unspecified asthma, uncomplicated; E11.9 Type 2 diabetes mellitus without complications; F17.200 Nicotine dependence, unspecified, uncomplicated; Z98.890 Other specified postprocedural states; Z79.84 Long term (current) use of oral hypoglycemic drugs; Z91.018 Allergy to other foods; Z88.0 Allergy status to penicillin; Z88.1 Allergy status to other antibiotic agents; Z88.8 Allergy status to other drugs, medicaments and biological substances; Z88.6 Allergy status to analgesic agent
CPT/HCPCS: 36415; 80048; 85025; 85730; 87040; 87070; 87077; 87186; 96365; 96368; 96375; 99285; J0696; J1885; J3370; J7040; J7060

== ENCOUNTER 2018-06-24 03:48 | Emergency (ER) | payer OTHER ==
[~2018-06-24] VITALS: Ht 175.3 cm; Wt 228.6 kg
[2018-06-24 04:07] VITALS: BP 104/88
[2018-07-22] MEDS ORDERED: FURO-144 PO (08:04)
[2018-07-23] MEDS ORDERED: METF-441 PO (08:45)
== END 2018-06-24 04:17 | disposition home or self-care (01) ==
LOC: ER 03:57
DX: L97.919 Non-pressure chronic ulcer of unspecified part of right lower leg with unspecified severity (principal); H54.8 Legal blindness, as defined in USA; I10 Essential (primary) hypertension; J45.909 Unspecified asthma, uncomplicated; E11.9 Type 2 diabetes mellitus without complications; R45.851 Suicidal ideations; F31.9 Bipolar disorder, unspecified; F20.9 Schizophrenia, unspecified; F17.200 Nicotine dependence, unspecified, uncomplicated; Z98.890 Other specified postprocedural states; Z79.82 Long term (current) use of aspirin; Z48.01 Encounter for change or removal of surgical wound dressing; Z86.73 Personal history of transient ischemic attack (TIA), and cerebral infarction without residual deficits; Z91.018 Allergy to other foods; Z88.0 Allergy status to penicillin; Z88.1 Allergy status to other antibiotic agents
CPT/HCPCS: 99281; A6402; Z7502

== ENCOUNTER 2018-07-02 00:28 | Emergency (ER) | payer OTHER ==
[~2018-07-02] VITALS: Ht 175.3 cm; Wt 228.6 kg
[2018-07-02 00:35] VITALS: BP 160/103
--- NOTE | 2018-07-02 00:35 | NUR ---
PT BIBSELF C/O BURNING WHEN URINATES X 3 DAYS, ALSO C/O R LEG WOUND DRAINAGE X 2 DAYS. PT IS AAOX4, NOT IN RESPIRATORY DISTRESS, V/S STABLE, KEPT RESTED AND COMFORTABLE, WILL CONTINUE TO MONITOR.
--- NOTE | 2018-07-02 01:00 | NUR ---
URINE SPECIMEN COLLECTED AND SENT TO LAB.
[2018-07-02 01:03] LABS: APPEARANCE,URINE Clear (CLEAR); BILIRUBIN,URINE Negative (NEGATIVE); BLOOD, URINE Negative Ery/uL (NEGATIVE); COLOR,URINE Yellow (YELLOW); KETONES,URINE Negative (NEGATIVE); LEUKOCYTE ESTERASE ,URINE Negative (NEGATIVE); NITRITE, URINE Negative (NEGATIVE); PH,URINE 6.5 (5.0-8.0); PROTEIN,URINE Negative (NEGATIVE); UGLUCOSE 500 MG/DL mg/dL (NEGATIVE); UROBILINOGEN,URINE 0.2 EU/dL (0.2)
--- NOTE | 2018-07-02 01:25 | NUR ---
WOUND DRESSING DONE BY ASSEMBLER FISHING FLOATS.
--- NOTE | 2018-07-02 01:26 | NUR ---
Patient discharged to home in stable condition. Written and verbal after care instructions given. Patient verbalizes understanding of instruction.
[2018-07-22] MEDS ORDERED: FURO-144 PO (08:04)
[2018-07-23] MEDS ORDERED: METF-441 PO (08:45)
== END 2018-07-02 01:31 | disposition home or self-care (01) ==
LOC: ER 00:30
DX: I83.12 Varicose veins of left lower extremity with inflammation (principal); I83.11 Varicose veins of right lower extremity with inflammation; H54.8 Legal blindness, as defined in USA; I10 Essential (primary) hypertension; J45.909 Unspecified asthma, uncomplicated; E11.9 Type 2 diabetes mellitus without complications; R45.851 Suicidal ideations; F31.9 Bipolar disorder, unspecified; F20.9 Schizophrenia, unspecified; F17.200 Nicotine dependence, unspecified, uncomplicated; Z98.890 Other specified postprocedural states; Z86.73 Personal history of transient ischemic attack (TIA), and cerebral infarction without residual deficits; Z79.82 Long term (current) use of aspirin; Z88.1 Allergy status to other antibiotic agents; Z91.018 Allergy to other foods; Z88.0 Allergy status to penicillin; Z88.6 Allergy status to analgesic agent
CPT/HCPCS: 81000-TC

== ENCOUNTER 2018-07-16 23:50 | Emergency (ER) | payer OTHER ==
[~2018-07-16] VITALS: Ht 175.3 cm; Wt 228.6 kg
--- NOTE | 2018-07-17 00:10 | NUR ---
PT CAME IN BY HIMSELF WORK. AAOX4. NAD. BREATHING EVEN AND UNLABORED. AMBULATORY WITH CANE AND LIMP. PT IS LEGALLY BLIND ON L EYE. CAME IN D/T SUICIDAL IDEATION SINCE YESTERDAY AND STATES THAT HE MISSED HIS MEDICATIONS FOR 2 DAYS. PT PLANS ON RUNNNG INTO TRAFFIC. NO HI. PT IS NOT CURRENTLY FEELING HURTUNG HIMSELF AND FEELS SAFE THAT HE IS IN THE HOSPITAL. PT DENIES AUDITORY AND VISUAL HALLUCINATION. HE STATES THAT HE HAS BAD THOUGHT PROCESS. . ALL BELONGINGS ARE FROM PT AND KEPT IN NURSING STATION. PT ALSO COMPLAINTS OF PAIN 5/10 AND DRAINAGE ON HIS R LEG. PT IS IN ER BED 13. AWAITING MD FOR SABRINA.
--- NOTE | 2018-07-17 00:13 | NUR ---
URINE COLLECTED AND SENT TO LABS.
--- NOTE | 2018-07-17 00:20 | NUR ---
LAB AT BEDSIDE. TECH AT BEDSIDE FOR DRESSING CHANGE.
[2018-07-17] MEDS ORDERED: ARIPIPRAZOLE 5 MG TABLET PO ONE (00:30)
[2018-07-17 00:39] LABS: BASOPHILS % (AUTO) 0.4 % (0.0-2.0); EOSINOPHILS % (AUTO) 1.4 % (0.0-6.0); HEMATOCRIT 39 % (39-51); HEMOGLOBIN 12.5 g/dL (13.5-17.5); LYMPHOCYTES # (AUTO) 1.7 /CMM (0.8-4.8); LYMPHOCYTES % (AUTO) 24.1 % (20.0-44.0); MEAN CORPUSCULAR HGB CONC 32 g/dl (31.0-36.0); MEAN CORPUSCULAR VOLUME 82 fL (80-96); MONOCYTES # (AUTO) 0.6 /CMM (0.1-1.30); MONOCYTES % (AUTO) 8.9 % (2.0-12.0); NEUTROPHILS # (AUTO) 4.5 /CMM (1.8-8.9); NEUTROPHILS % (AUTO) 65.2 % (43.0-81.0); PLATELET COUNT (AUTO) 141 /CMM (150-450); RED BLOOD CELL COUNT(AUTO) 4.73 MIL/uL (4.5-6.0); WHITE BLOOD COUNT (AUTO) 6.9 K/uL (4.3-11.0)
[2018-07-17 00:41] LABS: APPEARANCE,URINE Clear (CLEAR); BILIRUBIN,URINE Negative (NEGATIVE); BLOOD, URINE Negative Ery/uL (NEGATIVE); COLOR,URINE Yellow (YELLOW); KETONES,URINE 15 (NEGATIVE); LEUKOCYTE ESTERASE ,URINE Negative (NEGATIVE); NITRITE, URINE Negative (NEGATIVE); PH,URINE 5.5 (5.0-8.0); PROTEIN,URINE Negative (NEGATIVE); UGLUCOSE 250 MG/DL mg/dL (NEGATIVE); UROBILINOGEN,URINE 0.2 EU/dL (0.2)
[2018-07-17] MEDS ORDERED: ARIPIPRAZOLE 5 MG TABLET ONE (00:41)
[2018-07-17 00:48] LABS: CALCIUM, SERUM 8.6 mg/dL (8.5-10.1); CARBON DIOXIDE 35 mmol/L (21-32); CHLORIDE 102 mmol/L (98-107); CREATININE 0.8 mg/dL (0.6-1.3); GLUCOSE 304 mg/dL (74-106); POTASSIUM 4.1 mmol/L (3.5-5.1); SODIUM SERUM 139 mmol/L (136-145); UREA NITROGEN, BLOOD 15 mg/dL (7-18)
[2018-07-17] MEDS ORDERED: HYDROCODONE/APAP 10/325MG 1 EA TABLET ONE (00:48)
[2018-07-17] MEDS ORDERED: INSULIN REGULAR, HUMAN 100 UNIT/ML 10 ML VIAL SQ ONE ×2 (01:00→03:00)
[2018-07-17] MEDS ORDERED: HYDROCODONE/APAP 10/325MG 1 EA TABLET PO ONE (01:00)
[2018-07-17] MEDS ORDERED: POTASSIUM CHLORIDE 20 MEQ TAB.PRT.SR PO ONE ×2 (01:00→01:11)
[2018-07-17 01:02] LABS: ACETAMINOPHEN 0 ug/ml (10-30); ALANINE AMINOTRANSFERASE 17 U/L (12-78); ALBUMIN 3.2 g/dL (3.4-5.0); ALCOHOL, BLOOD < 3 mg/dL (0-0); ALKALINE PHOSPHATASE 89 U/L (46-116); ASPARTATE AMINOTRANSFERASE 18 U/L (15-37); BACTERIA,URINE Few /HPF (None Seen); BILIRUBIN,DIRECT 0.1 mg/dL (0.0-0.2); BILIRUBIN,TOTAL 0.8 mg/dL (0.2-1.0); RBC,URINE 0-2 /HPF (0-2); SALICYLATE < 0.2 mg/dL (2.8-20.0); SQUAMOUS EPITHELIAL CELL,UR Rare /HPF (None Seen); TOTAL PROTEIN, SERUM 6.8 g/dL (6.4-8.2); WBC,URINE 0-2 /HPF (0-3)
[2018-07-17] MEDS ORDERED: INSULIN REGULAR, HUMAN 100 UNIT/ML 10 ML VIAL ONE (01:11)
--- NOTE | 2018-07-17 01:35 | NUR ---
CALLED FOR PSYCH EVAL. ART CAPPILA WILL BE COMING.
--- NOTE | 2018-07-17 01:41 | NUR ---
PAGED RECEPTIONIST SCHEDULER CLINICIAN FOR PSYCH EVAL.
--- NOTE | 2018-07-17 02:20 | NUR ---
PT VERBALIZED RELIEF FROM PAIN. RATES HIS PAIN AT 4/10
--- NOTE | 2018-07-17 02:39 | NUR ---
CALLED TO PT'S BEDSIDE. PT VERBALIZED THAT HE IS STILL NOT READY TO GO HOME BECASUE HE IS STILL THINKING OF RUNNING INTO TRAFFIC. MIMA GOTTI WAS NOTIFIED.
--- NOTE | 2018-07-17 02:40 | NUR ---
ART AT BEDSIDE TALKING TO PT.
--- NOTE | 2018-07-17 02:52 | NUR ---
FSBS RECHECKED WITH RESULT OF 289. MADE AWARE. VERBAL ORDER TO GIVE ANOTHER 10UNITS OF INSULIN SQ.
--- NOTE | 2018-07-17 03:28 | NUR ---
PT IN BED AWAKE ON HIS PHONE. NAD NOTED.
--- NOTE | 2018-07-17 04:06 | NUR ---
FSBS DONE. RESULT 271. MADE AWARE.
--- NOTE | 2018-07-17 04:23 | NUR ---
NURSING SUP CALLED FOR TAXI VOUCHER FOR PT'S TRANSPORT HOME.
[2018-07-17 04:35] VITALS: BP 129/75
--- NOTE | 2018-07-17 04:35 | NUR ---
RN YANETH WILL CALL BACK ONCE TRANSPORT ARRANGED.
--- NOTE | 2018-07-17 04:37 | NUR ---
PT IS MEDICALLY AND PSYCHIATRICALLY CLEARED AWAITING TRANSPORT. PT IS AWARE OF HIS NO HARM CONTRACT AND WILL ABIDE BY IT BY NOT RUNNING INTO TRAFFIC. PT VERBALIZED THAT HE IS GOING TO HIS PSYCHIATRY APPT TODAY AT 10AM. PT IS CURRENTLY NOT THINKING NOR HAVE ANY PLASNS OF HURTING HIMSELF.
--- NOTE | 2018-07-17 04:52 | NUR ---
Patient discharged to home in stable condition. Written and verbal after care instructions given. Patient verbalizes understanding of instruction. Pt ambulatory with a steady gait
[2018-07-22] MEDS ORDERED: FURO-144 PO (08:04)
[2018-07-23] MEDS ORDERED: METF-441 PO (08:45)
== END 2018-07-17 04:55 | disposition home or self-care (01) ==
LOC: ER 23:54
DX: F32.9 Major depressive disorder, single episode, unspecified (principal); E11.65 Type 2 diabetes mellitus with hyperglycemia; F17.200 Nicotine dependence, unspecified, uncomplicated; I10 Essential (primary) hypertension; J45.909 Unspecified asthma, uncomplicated; F20.9 Schizophrenia, unspecified; M86.9 Osteomyelitis, unspecified; Z91.018 Allergy to other foods; Z88.8 Allergy status to other drugs, medicaments and biological substances; Z88.1 Allergy status to other antibiotic agents; Z79.82 Long term (current) use of aspirin; Z79.899 Other long term (current) drug therapy; Z86.73 Personal history of transient ischemic attack (TIA), and cerebral infarction without residual deficits
CPT/HCPCS: 36415; 80048; 80076; 80305; 80307; 80329; 81001; 82962 ×3; 85025; 96372 ×2; 99284; 99406; A6253 ×2; A6403; G0480; J1815 ×2; 81000-TC

== ENCOUNTER 2018-08-14 00:29 | Emergency (ER) | payer OTHER ==
[~2018-08-14] VITALS: Ht 175.3 cm; Wt 228.6 kg
[~2018-08-14 00:29] MED LIST changes: -ALBU2.5V38 IH; -BENZ2TAB7 PO; -CHLO10TA5 PO; -DIVA500T2 PO; -DOCU-141 PO; -FOLI1CAP7 PO; +FURO-144 PO; -HYDR12.55 PO; -HYDR25SU13 RC; -IPRA12.9 IH; +METF-441 PO; -NAPR-1192 PO; -SULF1TAB48 PO; -TRAZ150T75 PO
--- NOTE | 2018-08-14 01:54 | NUR ---
IV PICC ERICH removed. Catheter intact and site benign. Pressure and 4x4 applied to site. No bleeding noted.
--- NOTE | 2018-08-14 01:56 | NUR ---
Patient discharged to home in stable condition. Written and verbal after care instructions given. Patient verbalizes understanding of instruction.
[2018-08-14 01:57] VITALS: BP 149/107
== END 2018-08-14 01:58 | disposition home or self-care (01) ==
LOC: ER 00:34
DX: Z45.2 Encounter for adjustment and management of vascular access device (principal); E11.9 Type 2 diabetes mellitus without complications; H54.8 Legal blindness, as defined in USA; I10 Essential (primary) hypertension; F17.200 Nicotine dependence, unspecified, uncomplicated; Z98.890 Other specified postprocedural states; Z86.73 Personal history of transient ischemic attack (TIA), and cerebral infarction without residual deficits; Z79.82 Long term (current) use of aspirin; Z91.018 Allergy to other foods; Z88.0 Allergy status to penicillin; Z88.1 Allergy status to other antibiotic agents; Z88.6 Allergy status to analgesic agent
CPT/HCPCS: Z7502

== ENCOUNTER 2018-08-29 03:46 | Emergency (ER) | payer OTHER ==
[~2018-08-29] VITALS: Ht 175.3 cm; Wt 229.1 kg
--- NOTE | 2018-08-29 04:12 | NUR ---
BIBS FOR C/O "I FEEL DEPRESSED AND I WANT TO OVERDOSE MY SELF WITH MY PILLS"
[2018-08-29 04:22] LABS: APPEARANCE,URINE Clear (CLEAR); BILIRUBIN,URINE Negative (NEGATIVE); BLOOD, URINE Negative Ery/uL (NEGATIVE); COLOR,URINE Yellow (YELLOW); KETONES,URINE Negative (NEGATIVE); LEUKOCYTE ESTERASE ,URINE Negative (NEGATIVE); NITRITE, URINE Negative (NEGATIVE); PH,URINE 6.5 (5.0-8.0); PROTEIN,URINE Negative (NEGATIVE); UGLUCOSE Negative (NEGATIVE)
[2018-08-29 04:31] LABS: BASOPHILS % (AUTO) 0.4 % (0.0-2.0); EOSINOPHILS % (AUTO) 2.6 % (0.0-6.0); HEMATOCRIT 41 % (39-51); HEMOGLOBIN 13.4 g/dL (13.5-17.5); LYMPHOCYTES # (AUTO) 1.5 /CMM (0.8-4.8); LYMPHOCYTES % (AUTO) 29.6 % (20.0-44.0); MEAN CORPUSCULAR HGB CONC 33 g/dl (31.0-36.0); MEAN CORPUSCULAR VOLUME 83 fL (80-96); MONOCYTES # (AUTO) 0.4 /CMM (0.1-1.30); MONOCYTES % (AUTO) 7.3 % (2.0-12.0); NEUTROPHILS % (AUTO) 60.1 % (43.0-81.0); PLATELET COUNT (AUTO) 142 /CMM (150-450); RED BLOOD CELL COUNT(AUTO) 5.02 MIL/uL (4.5-6.0)
[2018-08-29 04:56] LABS: BACTERIA,URINE Rare /HPF (None Seen); RBC,URINE 0-2 /HPF (0-2); SQUAMOUS EPITHELIAL CELL,UR Rare /HPF (None Seen); WBC,URINE 0-2 /HPF (0-3)
[2018-08-29 05:00] LABS: CALCIUM, SERUM 8.5 mg/dL (8.5-10.1); CARBON DIOXIDE 32 mmol/L (21-32); CHLORIDE 104 mmol/L (98-107); CREATININE 0.8 mg/dL (0.6-1.3); GLUCOSE 166 mg/dL (74-106); POTASSIUM 3.7 mmol/L (3.5-5.1); SODIUM SERUM 142 mmol/L (136-145); UREA NITROGEN, BLOOD 22 mg/dL (7-18)
[2018-08-29 05:06] LABS: ALANINE AMINOTRANSFERASE 18 U/L (12-78); ALBUMIN 3.1 g/dL (3.4-5.0); ALKALINE PHOSPHATASE 121 U/L (46-116); ASPARTATE AMINOTRANSFERASE 26 U/L (15-37); BILIRUBIN,DIRECT 0.1 mg/dL (0.0-0.2); BILIRUBIN,TOTAL 0.7 mg/dL (0.2-1.0); TOTAL PROTEIN, SERUM 6.8 g/dL (6.4-8.2)
[2018-08-29 05:09] LABS: ACETAMINOPHEN 0 ug/ml (10-30); ALCOHOL, BLOOD < 3 mg/dL (0-0); SALICYLATE < 0.2 mg/dL (2.8-20.0)
--- NOTE | 2018-08-29 05:13 | NUR ---
PAGED VEHICLE CALIBRATION ENGINEER ACID PUMP OPERATOR.
--- NOTE | 2018-08-29 06:28 | NUR ---
PT SLEEPING IN BED COMFORTABLY. AROUSES EASILY. REMAINED SAFE AND UNDER CONT MONITORING.
--- NOTE | 2018-08-29 08:01 | NUR ---
PT DENIES ANY SI/HI. PLEASANT. MEDICALLY AND PSYCH CLEARED. D/C HOME IN STABLE CONDITION.
[2018-08-29 08:05] VITALS: BP 135/84
== END 2018-08-29 08:05 | disposition home or self-care (01) ==
LOC: ER 03:49
DX: R45.851 Suicidal ideations (principal); F41.9 Anxiety disorder, unspecified; H54.8 Legal blindness, as defined in USA; E11.65 Type 2 diabetes mellitus with hyperglycemia; E66.01 Morbid (severe) obesity due to excess calories; F32.9 Major depressive disorder, single episode, unspecified; I10 Essential (primary) hypertension; F17.200 Nicotine dependence, unspecified, uncomplicated; Z79.82 Long term (current) use of aspirin; Z88.0 Allergy status to penicillin; Z88.1 Allergy status to other antibiotic agents; Z91.018 Allergy to other foods; Z98.890 Other specified postprocedural states; Z88.6 Allergy status to analgesic agent; Z86.73 Personal history of transient ischemic attack (TIA), and cerebral infarction without residual deficits
CPT/HCPCS: 36415; 80048-TC; 80076-TC; 80305; 81000-TC; 85025-TC; G0480

== ENCOUNTER 2018-10-13 03:20 | Emergency (ER) | payer OTHER ==
[~2018-10-13] VITALS: Ht 175.3 cm; Wt 228.6 kg
[2018-10-13 03:33] VITALS: BP 154/108
[2018-10-13] MEDS ORDERED: CEPHALEXIN MONOHYDRATE 500 MG CAPSULE PO ONE ×2 (04:18→04:30)
[2018-10-13] MEDS ORDERED: SULFAMETH/TRIMETH 800/160 MG 1 UDTAB TABLET ONE (04:18)
[2018-10-13] MEDS ORDERED: SULFAMETH/TRIMETH 800/160 MG 1 UDTAB TABLET PO ONE (04:30)
== END 2018-10-13 06:05 | disposition home or self-care (01) ==
LOC: ER 03:23
DX: L03.115 Cellulitis of right lower limb (principal); F17.200 Nicotine dependence, unspecified, uncomplicated; I10 Essential (primary) hypertension; M86.9 Osteomyelitis, unspecified; Z98.890 Other specified postprocedural states; Z88.8 Allergy status to other drugs, medicaments and biological substances; Z88.1 Allergy status to other antibiotic agents; Z91.018 Allergy to other foods; Z79.84 Long term (current) use of oral hypoglycemic drugs; Z79.899 Other long term (current) drug therapy; Z79.82 Long term (current) use of aspirin

== ENCOUNTER 2018-11-05 02:55 | Emergency (ER) | payer OTHER ==
[~2018-11-05] VITALS: Ht 175.3 cm; Wt 229.1 kg
--- NOTE | 2018-11-05 03:30 | NUR ---
BIB SELF C/O ABD PAIN WITH N/V/D AND CHILLS X1 DAY. PT REPORTS THAT HE JUST FINISHED ATB TX FOR 7 DAYS FOR CHRONIC LEG WOUND.
--- NOTE | 2018-11-05 03:31 | NUR ---
ER MD AT BEDSIDE TO EVAL PT WITH ORDERS RECEIVED.
[2018-11-05] MEDS ORDERED: ONDANSETRON 4 MG TAB.RAPDIS ONE (03:53)
[2018-11-05] MEDS ORDERED: LOPERAMIDE HCL (2 MG CAP) 2 MG CAPSULE PO ONE (03:53)
[2018-11-05] MEDS ORDERED: PANTOPRAZOLE 40 MG TABLET.DR PO ONE (03:53)
[2018-11-05] MEDS: LOPERAMIDE HCL (2 MG CAP) 2 MG CAPSULE PO ONE (04:01)
[2018-11-05] MEDS: PANTOPRAZOLE 40 MG TABLET.DR PO ONE (04:01)
[2018-11-05] MEDS: ONDANSETRON 4 MG TAB.RAPDIS SL ONE (04:02)
[2018-11-05 04:04] LABS: HEMOGLOBIN 13.8 g/dL (13.5-17.5); RED BLOOD CELL COUNT(AUTO) 5.24 MIL/uL (4.5-6.0); WHITE BLOOD COUNT (AUTO) 5.9 K/uL (4.3-11.0)
[2018-11-05 04:05] LABS: BASOPHILS % (AUTO) 0.3 % (0.0-2.0); EOSINOPHILS % (AUTO) 2.1 % (0.0-6.0); HEMATOCRIT 42 % (39-51); LYMPHOCYTES # (AUTO) 1.8 /CMM (0.8-4.8); LYMPHOCYTES % (AUTO) 30.6 % (20.0-44.0); MEAN CORPUSCULAR HGB CONC 33 g/dl (31.0-36.0); MEAN CORPUSCULAR VOLUME 80 fL (80-96); MONOCYTES # (AUTO) 0.5 /CMM (0.1-1.30); MONOCYTES % (AUTO) 7.8 % (2.0-12.0); NEUTROPHILS # (AUTO) 3.5 /CMM (1.8-8.9); NEUTROPHILS % (AUTO) 59.2 % (43.0-81.0); PLATELET COUNT (AUTO) 152 /CMM (150-450)
[2018-11-05 04:12] LABS: APPEARANCE,URINE Clear (CLEAR); BILIRUBIN,URINE Negative (NEGATIVE); BLOOD, URINE Negative Ery/uL (NEGATIVE); COLOR,URINE Dark (YELLOW); KETONES,URINE Trace (NEGATIVE); LEUKOCYTE ESTERASE ,URINE Negative (NEGATIVE); NITRITE, URINE Negative (NEGATIVE); PH,URINE 5.5 (5.0-8.0); PROTEIN,URINE Negative (NEGATIVE); UGLUCOSE Negative (NEGATIVE); UROBILINOGEN,URINE 0.2 EU/dL (0.2)
[2018-11-05 04:13] LABS: CALCIUM, SERUM 8.9 mg/dL (8.5-10.1)
[2018-11-05 04:20] LABS: ALBUMIN 3.6 g/dL (3.4-5.0); BILIRUBIN,DIRECT 0.2 mg/dL (0.0-0.2); BILIRUBIN,TOTAL 0.6 mg/dL (0.2-1.0); TOTAL PROTEIN, SERUM 7.6 g/dL (6.4-8.2)
[2018-11-05 05:12] LABS: RBC,URINE 0-2 /HPF (0-2)
--- NOTE | 2018-11-05 05:12 | NUR ---
Patient discharged to home in stable condition. Rx and Written and verbal after care instructions given. Patient verbalizes understanding of instruction.
[2018-11-05 05:13] LABS: BACTERIA,URINE Few /HPF (None Seen); CALCIUM OXALATE CRYSTALS,UR Many /HPF (None Seen); SQUAMOUS EPITHELIAL CELL,UR Rare /HPF (None Seen)
[2018-11-05 05:59] VITALS: BP 168/84
== END 2018-11-05 06:02 | disposition home or self-care (01) ==
LOC: ER 02:58
DX: K80.50 Calculus of bile duct without cholangitis or cholecystitis without obstruction (principal); I10 Essential (primary) hypertension; L97.919 Non-pressure chronic ulcer of unspecified part of right lower leg with unspecified severity; M86.9 Osteomyelitis, unspecified; Z98.890 Other specified postprocedural states; Z86.73 Personal history of transient ischemic attack (TIA), and cerebral infarction without residual deficits; Z88.1 Allergy status to other antibiotic agents; Z88.8 Allergy status to other drugs, medicaments and biological substances; Z91.018 Allergy to other foods; Z79.899 Other long term (current) drug therapy; Z79.82 Long term (current) use of aspirin
CPT/HCPCS: 36415; 80048; 80076; 81001; 83690; 85025; 99284; Q0162; 81000-TC

== ENCOUNTER 2018-11-09 01:25 | Emergency (ER) | payer OTHER ==
[~2018-11-09] VITALS: Ht 175.3 cm; Wt 229.1 kg
--- NOTE | 2018-11-09 01:40 | NUR ---
TO BED 3 AMBULATORY C/O MIDEPIGASTRIC TO MIDABD PAIN RADIATES TO PELVIS & RUQ X1 DAY. PT AAOX4 NO ACUTE DISTRESS NOTED, RESP EVEN AND UNALBORED. URINE SAMPLE COLLECTED AND SENT TO LAB.
[2018-11-09] MEDS ORDERED: MORPHINE SULFATE INJ 2 MG/ML DISP.SYRIN IV ONE (02:00)
[2018-11-09] MEDS ORDERED: ONDANSETRON HCL/PF 4 MG/2 ML VIAL IVP ONE (02:00)
[2018-11-09] MEDS ORDERED: IV NS 0.9% 1,000 ML BAG IV ONE (02:00)
[2018-11-09] MEDS ORDERED: MORPHINE SULFATE INJ 4 MG/ML DISP.SYRIN ONE (02:15)
[2018-11-09] MEDS ORDERED: ONDANSETRON HCL/PF 4 MG/2 ML VIAL ONE (02:15)
--- NOTE | 2018-11-09 02:20 | NUR ---
pt medicated as ordered.
[2018-11-09 02:23] LABS: BASOPHILS % (AUTO) 0.4 % (0.0-2.0); EOSINOPHILS % (AUTO) 1.4 % (0.0-6.0); HEMATOCRIT 40 % (39-51); HEMOGLOBIN 12.9 g/dL (13.5-17.5); LYMPHOCYTES # (AUTO) 1.4 /CMM (0.8-4.8); LYMPHOCYTES % (AUTO) 18.6 % (20.0-44.0); MEAN CORPUSCULAR HGB CONC 32 g/dl (31.0-36.0); MEAN CORPUSCULAR VOLUME 80 fL (80-96); MONOCYTES # (AUTO) 0.7 /CMM (0.1-1.30); MONOCYTES % (AUTO) 9.4 % (2.0-12.0); NEUTROPHILS # (AUTO) 5.2 /CMM (1.8-8.9); NEUTROPHILS % (AUTO) 70.2 % (43.0-81.0); PLATELET COUNT (AUTO) 132 /CMM (150-450); RED BLOOD CELL COUNT(AUTO) 4.96 MIL/uL (4.5-6.0); WHITE BLOOD COUNT (AUTO) 7.4 K/uL (4.3-11.0)
[2018-11-09 02:49] LABS: ALBUMIN 3.2 g/dL (3.4-5.0); BILIRUBIN,DIRECT 0.2 mg/dL (0.0-0.2); BILIRUBIN,TOTAL 0.6 mg/dL (0.2-1.0); CALCIUM, SERUM 8.8 mg/dL (8.5-10.1); CREATININE 0.8 mg/dL (0.6-1.3); TOTAL PROTEIN, SERUM 7.1 g/dL (6.4-8.2)
[2018-11-09 02:59] LABS: POTASSIUM 4.1 mmol/L (3.5-5.1)
[2018-11-09 03:05] LABS: APPEARANCE,URINE Clear (CLEAR); BILIRUBIN,URINE Negative (NEGATIVE); BLOOD, URINE Negative Ery/uL (NEGATIVE); COLOR,URINE Yellow (YELLOW); KETONES,URINE Negative (NEGATIVE); LEUKOCYTE ESTERASE ,URINE Negative (NEGATIVE); NITRITE, URINE Negative (NEGATIVE); PROTEIN,URINE Negative (NEGATIVE); UGLUCOSE 250 MG/DL mg/dL (NEGATIVE); UROBILINOGEN,URINE 0.2 EU/dL (0.2)
--- NOTE | 2018-11-09 03:22 | NUR ---
IV removed. Catheter intact and site benign. Pressure and 4x4 applied to site. No bleeding noted. Patient discharged to home in stable condition. Written and verbal after care instructions given. Patient verbalizes understanding of instruction. ambulatory with a steady gait noted. pt aaox4 no acute distress noted, resp even and unlabored. advice pt not to drive or operate any machinery due to pt was given narcotic medicine. pt verbalize understanding.
[2018-11-09 03:24] VITALS: BP 156/79
== END 2018-11-09 03:25 | disposition home or self-care (01) ==
LOC: ER 01:25
DX: R10.13 Epigastric pain (principal); R10.31 Right lower quadrant pain; R10.11 Right upper quadrant pain; E66.01 Morbid (severe) obesity due to excess calories; I10 Essential (primary) hypertension; M86.9 Osteomyelitis, unspecified; Z68.45 Body mass index [BMI] 70 or greater, adult; Z86.73 Personal history of transient ischemic attack (TIA), and cerebral infarction without residual deficits; Z98.890 Other specified postprocedural states; Z88.1 Allergy status to other antibiotic agents; Z88.8 Allergy status to other drugs, medicaments and biological substances; Z91.018 Allergy to other foods; Z79.899 Other long term (current) drug therapy
CPT/HCPCS: 36415; 76770; 80048; 80076; 81001; 85025; 96374; 96375; 99284; J2270; J2405; J7030; 81000-TC

== ENCOUNTER 2018-11-24 01:21 | Emergency (ER) | payer OTHER ==
[~2018-11-24] VITALS: Ht 175.3 cm; Wt 229.1 kg
[2018-11-24 01:34] VITALS: BP 143/99
[2018-11-24 02:18] LABS: APPEARANCE,URINE Clear (CLEAR); BILIRUBIN,URINE SMALL (NEGATIVE); BLOOD, URINE Negative Ery/uL (NEGATIVE); COLOR,URINE Yellow (YELLOW); KETONES,URINE Negative (NEGATIVE); LEUKOCYTE ESTERASE ,URINE Negative (NEGATIVE); NITRITE, URINE Negative (NEGATIVE); PROTEIN,URINE 30 mg/dl (NEGATIVE); UGLUCOSE Negative (NEGATIVE); UROBILINOGEN,URINE 0.2 EU/dL (0.2)
[2018-11-24 02:42] LABS: BACTERIA,URINE None seen /HPF (None Seen); RBC,URINE 0-2 /HPF (0-2); SQUAMOUS EPITHELIAL CELL,UR Rare /HPF (None Seen); WBC,URINE 0-2 /HPF (0-3)
== END 2018-11-24 03:12 | disposition home or self-care (01) ==
LOC: ER 01:23
DX: M54.5 Low back pain (principal); H54.8 Legal blindness, as defined in USA; E11.9 Type 2 diabetes mellitus without complications; I10 Essential (primary) hypertension; E78.5 Hyperlipidemia, unspecified; F41.9 Anxiety disorder, unspecified; F29 Unspecified psychosis not due to a substance or known physiological condition; F17.200 Nicotine dependence, unspecified, uncomplicated; Z86.73 Personal history of transient ischemic attack (TIA), and cerebral infarction without residual deficits; Z98.890 Other specified postprocedural states; Z79.82 Long term (current) use of aspirin; Z91.018 Allergy to other foods; Z88.0 Allergy status to penicillin; Z88.1 Allergy status to other antibiotic agents; Z88.8 Allergy status to other drugs, medicaments and biological substances
CPT/HCPCS: 81000-TC; 87086-TC

== ENCOUNTER 2018-12-04 01:50 | Emergency (ER) | payer OTHER ==
[~2018-12-04] VITALS: Ht 175.3 cm; Wt 229.1 kg
--- NOTE | 2018-12-04 02:20 | NUR ---
MARIVEL. TO ER ED 11. AAOX4. NO RESP DISTRESS. AMBULATORY. C/O LOWER ABDOMINAL PAIN AND PAIN WHEN URINATING. PT REPORTS THAT IT STARTED YESTERDAY. PT DENIES CHEST PAIN. NO SOB. URINE COLLECTED, SENT TO LAB. WAS AT BEDSIDE. AWAITING FURTHER ORDERS
[2018-12-04 02:30] LABS: APPEARANCE,URINE Clear (CLEAR); BILIRUBIN,URINE Negative (NEGATIVE); BLOOD, URINE Negative Ery/uL (NEGATIVE); COLOR,URINE Yellow (YELLOW); KETONES,URINE Trace (NEGATIVE); LEUKOCYTE ESTERASE ,URINE Negative (NEGATIVE); NITRITE, URINE Negative (NEGATIVE); PH,URINE 6.5 (5.0-8.0); PROTEIN,URINE Negative (NEGATIVE); UGLUCOSE Negative (NEGATIVE); UROBILINOGEN,URINE 0.2 EU/dL (0.2)
[2018-12-04 02:37] LABS: BACTERIA,URINE Few /HPF (None Seen); RBC,URINE 0-2 /HPF (0-2); SQUAMOUS EPITHELIAL CELL,UR Rare /HPF (None Seen)
--- NOTE | 2018-12-04 02:52 | NUR ---
Patient discharged to home in stable condition. Written and verbal after care instructions given. Patient verbalizes understanding of instruction. Pt ambulatory with a steady gait
[2018-12-04 02:53] VITALS: BP 152/89
== END 2018-12-04 02:52 | disposition home or self-care (01) ==
LOC: ER 01:52
DX: N39.0 Urinary tract infection, site not specified (principal); H54.8 Legal blindness, as defined in USA; I10 Essential (primary) hypertension; E11.9 Type 2 diabetes mellitus without complications; F17.200 Nicotine dependence, unspecified, uncomplicated; Z98.890 Other specified postprocedural states; Z86.73 Personal history of transient ischemic attack (TIA), and cerebral infarction without residual deficits; Z79.82 Long term (current) use of aspirin; Z91.018 Allergy to other foods; Z88.0 Allergy status to penicillin; Z88.1 Allergy status to other antibiotic agents; Z88.6 Allergy status to analgesic agent
CPT/HCPCS: 81000-TC; 87086-TC; 87186-TC

== ENCOUNTER 2018-12-13 02:16 | Emergency (ER) | payer OTHER ==
[~2018-12-13] VITALS: Ht 175.3 cm; Wt 229.1 kg
--- NOTE | 2018-12-13 02:20 | NUR ---
TO BED 11 AMBULATORY C/O FEVER, CHILLS, CHRONIC RLE PAIN. TOOK TYLENOL 1000MG PO @ 0000. PT AAOX4 NO ACUTE DISTRESS NOTED, RESP EVEN AND UNLABORED. PLACE PT ON CARDIAC MONITORING, CONITNUOUS POX. ER MD AT BEDSIDE TO EVAL PT WITH ORDERS RECEIVED. WILL CARRY OUT ORDERS.
[2018-12-13 02:53] LABS: APPEARANCE,URINE Clear (CLEAR); BILIRUBIN,URINE Negative (NEGATIVE); BLOOD, URINE Negative Ery/uL (NEGATIVE); COLOR,URINE Yellow (YELLOW); KETONES,URINE Trace (NEGATIVE); LEUKOCYTE ESTERASE ,URINE Negative (NEGATIVE); NITRITE, URINE Negative (NEGATIVE); PROTEIN,URINE Negative (NEGATIVE); UGLUCOSE 100 MG/DL mg/dL (NEGATIVE)
[2018-12-13] MEDS ORDERED: IV NS 0.9% 1,000 ML BAG IV ONE (03:00)
[2018-12-13 03:10] LABS: BASOPHILS % (AUTO) 0.3 % (0.0-2.0); EOSINOPHILS % (AUTO) 1.1 % (0.0-6.0); HEMATOCRIT 39 % (39-51); HEMOGLOBIN 12.5 g/dL (13.5-17.5); LYMPHOCYTES # (AUTO) 1.2 /CMM (0.8-4.8); LYMPHOCYTES % (AUTO) 21.1 % (20.0-44.0); MEAN CORPUSCULAR HGB CONC 32 g/dl (31.0-36.0); MEAN CORPUSCULAR VOLUME 79 fL (80-96); MONOCYTES # (AUTO) 0.7 /CMM (0.1-1.30); MONOCYTES % (AUTO) 12.2 % (2.0-12.0); NEUTROPHILS # (AUTO) 3.8 /CMM (1.8-8.9); NEUTROPHILS % (AUTO) 65.3 % (43.0-81.0); PLATELET COUNT (AUTO) 128 /CMM (150-450); RED BLOOD CELL COUNT(AUTO) 4.91 MIL/uL (4.5-6.0); WHITE BLOOD COUNT (AUTO) 5.9 K/uL (4.3-11.0)
[2018-12-13 03:20] LABS: CALCIUM, SERUM 8.7 mg/dL (8.5-10.1); CARBON DIOXIDE 31 mmol/L (21-32); CHLORIDE 100 mmol/L (98-107); CREATININE 0.8 mg/dL (0.6-1.3); GLUCOSE 252 mg/dL (74-106); POTASSIUM 4.2 mmol/L (3.5-5.1); SODIUM SERUM 138 mmol/L (136-145); UREA NITROGEN, BLOOD 18 mg/dL (7-18)
[2018-12-13 03:27] LABS: ALANINE AMINOTRANSFERASE 18 U/L (12-78); ALBUMIN 3.2 g/dL (3.4-5.0); ALKALINE PHOSPHATASE 93 U/L (46-116); ASPARTATE AMINOTRANSFERASE 19 U/L (15-37); BILIRUBIN,DIRECT 0.2 mg/dL (0.0-0.2); BILIRUBIN,TOTAL 0.6 mg/dL (0.2-1.0); TOTAL PROTEIN, SERUM 7.4 g/dL (6.4-8.2)
--- NOTE | 2018-12-13 03:46 | NUR ---
pt asleep, no acute distress noted, resp even and unlabored. call light within reach. will continue to monito pt.
[2018-12-13 03:50] LABS: BACTERIA,URINE Few /HPF (None Seen); RBC,URINE 0-2 /HPF (0-2); SQUAMOUS EPITHELIAL CELL,UR Rare /HPF (None Seen)
--- NOTE | 2018-12-13 05:07 | NUR ---
IV removed. Catheter intact and site benign. Pressure and 4x4 applied to site. No bleeding noted. Patient discharged to home in stable condition. Written and verbal after care instructions given. Patient verbalizes understanding of instruction. ambulatory with a steady gait noted. pt aaox4 no acute distress noted, resp even and unlabored.
[2018-12-13 05:09] VITALS: BP 143/86
== END 2018-12-13 05:10 | disposition home or self-care (01) ==
LOC: ER 02:21
DX: R50.9 Fever, unspecified (principal); I10 Essential (primary) hypertension; M86.9 Osteomyelitis, unspecified; Z98.890 Other specified postprocedural states; Z86.73 Personal history of transient ischemic attack (TIA), and cerebral infarction without residual deficits; Z88.1 Allergy status to other antibiotic agents; Z88.8 Allergy status to other drugs, medicaments and biological substances; Z91.018 Allergy to other foods; Z79.84 Long term (current) use of oral hypoglycemic drugs; Z79.82 Long term (current) use of aspirin; Z79.899 Other long term (current) drug therapy
CPT/HCPCS: 36415; 71045; 80048; 80076; 81001; 83605; 84145; 84484; 85025; 85730; 87040 ×2; 87086; 93005; 99284; J7030 ×2; 81000-TC

== ENCOUNTER 2019-01-28 01:08 | Emergency (ER) | payer OTHER ==
[~2019-01-28] VITALS: Ht 175.3 cm; Wt 227.2 kg
--- NOTE | 2019-01-28 01:50 | NUR ---
PT AAOX4. AMBULATORY. C/O HAVING ASTHMA X1HR AGO. TOOK ALBUTEROL WITH NO RELIEF, 94% ON ROOM AIR. NO ACUTE DISTRESS NOTED. PLACED ON MONITOR AND PULSE OX. WILL COTNINUE TO MONITOR.
[2019-01-28] MEDS ORDERED: ALBUTEROL FS 2.5 MG/3 ML VIAL.NEB ONE (02:28)
[2019-01-28] MEDS ORDERED: IPRATROPIUM NEB FS 0.5 MG/2.5 ML AMPUL.NEB ONE (02:28)
--- NOTE | 2019-01-28 02:31 | NUR ---
RT AT BEDSIDE FOR BREATHING TREATMENT
[2019-01-28] MEDS: IPRATROPIUM NEB FS 0.5 MG/2.5 ML AMPUL.NEB NEB ONE (02:37)
[2019-01-28] MEDS: ALBUTEROL FS 2.5 MG/3 ML VIAL.NEB NEB ONE (02:37)
--- NOTE | 2019-01-28 03:28 | NUR ---
Patient discharged to home in stable condition. Written and verbal after care instructions given. Patient verbalizes understanding of instruction. Pt ambulatory with a steady gait
--- NOTE | 2019-01-28 03:37 | NUR ---
PT VERBALIZED THAT HE FEELS BETTER AND BREATHING IS BETTER.
[2019-01-28 03:54] VITALS: BP 145/89
== END 2019-01-28 03:31 | disposition home or self-care (01) ==
LOC: ER 01:15
DX: J45.909 Unspecified asthma, uncomplicated (principal); H54.8 Legal blindness, as defined in USA; I10 Essential (primary) hypertension; E11.9 Type 2 diabetes mellitus without complications; F17.200 Nicotine dependence, unspecified, uncomplicated; E66.01 Morbid (severe) obesity due to excess calories; Z68.45 Body mass index [BMI] 70 or greater, adult; Z86.73 Personal history of transient ischemic attack (TIA), and cerebral infarction without residual deficits; Z98.890 Other specified postprocedural states; Z88.1 Allergy status to other antibiotic agents; Z91.018 Allergy to other foods; Z88.0 Allergy status to penicillin; Z88.6 Allergy status to analgesic agent; Z79.82 Long term (current) use of aspirin; Z79.899 Other long term (current) drug therapy

== ENCOUNTER 2019-02-11 01:57 | Emergency (ER) | payer OTHER ==
[~2019-02-11] VITALS: Ht 177.8 cm; Wt 240.4 kg
--- NOTE | 2019-02-11 02:21 | NUR ---
BIBS. TO ER BED 10. AAOX4. NO RESP DISTRESS NOTED. AMBULATORY ON STEADY GAIT W/O ASSIST FROM TRIAGE TO BED. C/O R SIDE HEADACHE AND R SIDED WEAKNESS. PT STATES THE THE HEADACHE AND WEAKNESS STARTED @ 1 AM. PT SPEACH IS NORMAL WITH ANY SLURRING. NOTED RUE EXT IS WEAK THAN LEFT AND HAS LESS SENSATION ON LEFT. LLE IS WEAKER THE THE LEFT BUT SENSATIONS ARE EQUAL. NO VISUAL GAZE DEFICIT. AT [facility] FOR EVAL.
[2019-02-11] MEDS ORDERED: LORAZEPAM 1 MG TABLET PO ONE (02:30)
[2019-02-11] MEDS ORDERED: LORAZEPAM 1 MG TABLET ONE (02:35)
--- NOTE | 2019-02-11 05:17 | NUR ---
Patient discharged to home in stable condition. Written and verbal after care instructions given. Patient verbalizes understanding of instruction. Pt ambulatory with a steady gait
[2019-02-11 05:20] VITALS: BP 166/70
== END 2019-02-11 05:20 | disposition home or self-care (01) ==
LOC: ER 01:57
DX: F41.9 Anxiety disorder, unspecified (principal); I10 Essential (primary) hypertension; M86.9 Osteomyelitis, unspecified; Z91.018 Allergy to other foods; Z88.8 Allergy status to other drugs, medicaments and biological substances; Z88.1 Allergy status to other antibiotic agents; Z79.84 Long term (current) use of oral hypoglycemic drugs; Z79.899 Other long term (current) drug therapy; Z79.82 Long term (current) use of aspirin; Z86.73 Personal history of transient ischemic attack (TIA), and cerebral infarction without residual deficits
CPT/HCPCS: 70450-TC; 82962-TC

== ENCOUNTER 2019-04-28 00:43 | Emergency (ER) | payer OTHER ==
[~2019-04-28] VITALS: Ht 177.8 cm; Wt 226.8 kg
[2019-04-28 00:59] VITALS: BP 136/78
[2019-04-28 01:22] LABS: BASOPHILS % (AUTO) 0.3 % (0.0-2.0); EOSINOPHILS % (AUTO) 0.9 % (0.0-6.0); HEMATOCRIT 38 % (39-51); LYMPHOCYTES # (AUTO) 1.2 /CMM (0.8-4.8); LYMPHOCYTES % (AUTO) 21.3 % (20.0-44.0); MEAN CORPUSCULAR HGB CONC 31 g/dl (31.0-36.0); MEAN CORPUSCULAR VOLUME 82 fL (80-96); MONOCYTES # (AUTO) 0.5 /CMM (0.1-1.30); MONOCYTES % (AUTO) 8.4 % (2.0-12.0); NEUTROPHILS # (AUTO) 3.9 /CMM (1.8-8.9); NEUTROPHILS % (AUTO) 69.1 % (43.0-81.0); PLATELET COUNT (AUTO) 186 /CMM (150-450); RED BLOOD CELL COUNT(AUTO) 4.65 MIL/uL (4.5-6.0); WHITE BLOOD COUNT (AUTO) 5.6 K/uL (4.3-11.0)
[2019-04-28 01:31] LABS: POTASSIUM 4.6 mmol/L (3.5-5.1)
[2019-04-28] MEDS ORDERED: IV NS 0.9% 1,000 ML BAG IV ONE (02:00)
[2019-04-28] MEDS ORDERED: INSULIN REGULAR, HUMAN 100 UNIT/ML 10 ML VIAL SQ ONE (02:00)
== END 2019-04-28 03:35 | disposition home or self-care (01) ==
LOC: ER 00:45
DX: E11.65 Type 2 diabetes mellitus with hyperglycemia (principal); E66.01 Morbid (severe) obesity due to excess calories; Z68.45 Body mass index [BMI] 70 or greater, adult; I10 Essential (primary) hypertension; Z91.018 Allergy to other foods; Z88.1 Allergy status to other antibiotic agents; Z88.8 Allergy status to other drugs, medicaments and biological substances; Z86.73 Personal history of transient ischemic attack (TIA), and cerebral infarction without residual deficits; Z79.84 Long term (current) use of oral hypoglycemic drugs; Z79.899 Other long term (current) drug therapy; Z79.82 Long term (current) use of aspirin
CPT/HCPCS: 36415; 80048-TC; 82962-TC; 85025-TC

== ENCOUNTER 2019-05-08 02:49 | Emergency (ER) | payer OTHER ==
[~2019-05-08] VITALS: Ht 175.3 cm; Wt 226.8 kg
--- NOTE | 2019-05-08 03:21 | NUR ---
PT AAOX4. BIBSELF C/O DYURIA AND BILATERAL FLANK PAIN. RR EVEN AND UNLABORED. PT PLACED IN BED 9. URINE COLLECTED AND SENT TO LAB. AWAITING MD FOR EVAL.
--- NOTE | 2019-05-08 03:22 | NUR ---
LABORATORY CHEMIST AT BEDSIDE FOR LAB COLLECTION
[2019-05-08 03:31] LABS: APPEARANCE,URINE Slightly Cloudy (CLEAR); BILIRUBIN,URINE Negative (NEGATIVE); BLOOD, URINE Negative Ery/uL (NEGATIVE); COLOR,URINE Yellow (YELLOW); KETONES,URINE Trace (NEGATIVE); LEUKOCYTE ESTERASE ,URINE Negative (NEGATIVE); NITRITE, URINE Positive (NEGATIVE); PROTEIN,URINE Negative (NEGATIVE); UGLUCOSE >=1000 mg/dL (NEGATIVE); UROBILINOGEN,URINE 0.2 EU/dL (0.2)
[2019-05-08 03:36] LABS: BASOPHILS % (AUTO) 0.5 % (0.0-2.0); EOSINOPHILS % (AUTO) 0.4 % (0.0-6.0); HEMATOCRIT 39 % (39-51); HEMOGLOBIN 12.4 g/dL (13.5-17.5); LYMPHOCYTES # (AUTO) 1.7 /CMM (0.8-4.8); LYMPHOCYTES % (AUTO) 25.1 % (20.0-44.0); MEAN CORPUSCULAR HGB CONC 32 g/dl (31.0-36.0); MEAN CORPUSCULAR VOLUME 82 fL (80-96); MONOCYTES # (AUTO) 0.6 /CMM (0.1-1.30); MONOCYTES % (AUTO) 8.3 % (2.0-12.0); NEUTROPHILS # (AUTO) 4.3 /CMM (1.8-8.9); NEUTROPHILS % (AUTO) 65.7 % (43.0-81.0); PLATELET COUNT (AUTO) 174 /CMM (150-450); RED BLOOD CELL COUNT(AUTO) 4.83 MIL/uL (4.5-6.0); WHITE BLOOD COUNT (AUTO) 6.6 K/uL (4.3-11.0)
[2019-05-08 03:46] LABS: ALBUMIN 2.9 g/dL (3.4-5.0); BILIRUBIN,DIRECT 0.1 mg/dL (0.0-0.2); BILIRUBIN,TOTAL 0.5 mg/dL (0.2-1.0); CALCIUM, SERUM 8.7 mg/dL (8.5-10.1); POTASSIUM 4.1 mmol/L (3.5-5.1); TOTAL PROTEIN, SERUM 7.6 g/dL (6.4-8.2)
[2019-05-08 03:47] LABS: BACTERIA,URINE Few /HPF (None Seen); SQUAMOUS EPITHELIAL CELL,UR Few /HPF (None Seen); WBC,URINE TOO NUMEROUS TO COUN /HPF (0-3)
--- NOTE | 2019-05-08 06:05 | NUR ---
Patient discharged to home in stable condition. Written and verbal after care instructions given. Patient verbalizes understanding of instruction and RX. vss. Pt ambulatory with steady gait.
[2019-05-08 06:06] VITALS: BP 138/75
== END 2019-05-08 06:07 | disposition home or self-care (01) ==
LOC: ER 02:52
DX: N39.0 Urinary tract infection, site not specified (principal); B96.20 Unspecified Escherichia coli [E. coli] as the cause of diseases classified elsewhere; Z16.12 Extended spectrum beta lactamase (ESBL) resistance; Z86.73 Personal history of transient ischemic attack (TIA), and cerebral infarction without residual deficits; H54.8 Legal blindness, as defined in USA; R73.03 Prediabetes; E66.01 Morbid (severe) obesity due to excess calories
CPT/HCPCS: 36415; 80048-TC; 80076-TC; 81000-TC; 85025-TC; 87086-TC; 87186-TC

== ENCOUNTER 2019-06-07 02:12 | Emergency (ER) | payer OTHER ==
[~2019-06-07] VITALS: Ht 167.6 cm; Wt 224.5 kg
[2019-06-07 02:12] VITALS: BP 152/108
--- NOTE | 2019-06-07 02:15 | NUR ---
PT CAME TO ED C/O RED BUMPS/WOUND ON AN EXISTING PRESSURE ULCER ON THE RLE. PT AAOX4, VSS, RR EVEN AND UNLABORED ON RA W NAD NOTED. PT CONNECTED TO THE MONITOR AND POX
--- NOTE | 2019-06-07 03:17 | NUR ---
Hannah larson in [facility] - 06/07/19 at 0340 by LIANE RSV AND COVID SWABS COLLECTED AND SENT TO LAB
--- NOTE | 2019-06-07 03:40 | NUR ---
Patient discharged to home in stable condition. Written and verbal after care instructions given. Patient verbalizes understanding of instruction.
== END 2019-06-07 03:41 | disposition home or self-care (01) ==
LOC: ER 02:12
DX: L97.919 Non-pressure chronic ulcer of unspecified part of right lower leg with unspecified severity (principal); I10 Essential (primary) hypertension; M86.9 Osteomyelitis, unspecified; Z86.73 Personal history of transient ischemic attack (TIA), and cerebral infarction without residual deficits; Z98.890 Other specified postprocedural states; Z88.1 Allergy status to other antibiotic agents; Z91.018 Allergy to other foods; Z88.8 Allergy status to other drugs, medicaments and biological substances; Z79.899 Other long term (current) drug therapy; Z79.82 Long term (current) use of aspirin

== ENCOUNTER 2019-08-02 03:47 | Emergency (ER) | payer MEDICAID, OTHER ==
[~2019-08-02] VITALS: Ht 167.6 cm; Wt 224.5 kg
--- NOTE | 2019-08-02 03:48 | NUR ---
PT CAME TO THE ED C/O SI WITH PLAN TO OVERDOSE ON MEDS. PT STATES "I'VE BEEN VERY DEPRESSED X3WEEK NOW AND MY FAMILY DOESN'T LISTEN TO MY FEELINGS". PT AAOX4, RESPIRATIONS EVEN AND UNLABORED ON RA W/ NAD NOTED. PT CHANGED INTO GOWN, BELONGINGS PLACED TO LOCKER, SUICIDE PRECAUTIONS IMPLEMENTED. SITTER AT BEDSIDE FOR SAFETY
[2019-08-02 04:27] LABS: APPEARANCE,URINE Clear (CLEAR); BILIRUBIN,URINE Negative (NEGATIVE); BLOOD, URINE Negative Ery/uL (NEGATIVE); COLOR,URINE Yellow (YELLOW); KETONES,URINE Negative (NEGATIVE); LEUKOCYTE ESTERASE ,URINE Negative (NEGATIVE); NITRITE, URINE Negative (NEGATIVE); PROTEIN,URINE Negative (NEGATIVE); UGLUCOSE Negative (NEGATIVE); UROBILINOGEN,URINE 0.2 EU/dL (0.2)
[2019-08-02 04:47] LABS: BASOPHILS % (AUTO) 0.8 % (0.0-2.0); EOSINOPHILS % (AUTO) 3.1 % (0.0-6.0); HEMATOCRIT 36 % (39-51); HEMOGLOBIN 11.4 g/dL (13.5-17.5); LYMPHOCYTES # (AUTO) 1.1 /CMM (0.8-4.8); MEAN CORPUSCULAR HGB CONC 32 g/dl (31.0-36.0); MEAN CORPUSCULAR VOLUME 80 fL (80-96); MONOCYTES # (AUTO) 0.5 /CMM (0.1-1.30); MONOCYTES % (AUTO) 9.5 % (2.0-12.0); NEUTROPHILS # (AUTO) 3.4 /CMM (1.8-8.9); NEUTROPHILS % (AUTO) 64.6 % (43.0-81.0); PLATELET COUNT (AUTO) 167 /CMM (150-450); WHITE BLOOD COUNT (AUTO) 5.2 K/uL (4.3-11.0)
[2019-08-02 04:53] LABS: CALCIUM, SERUM 8.5 mg/dL (8.5-10.1); CARBON DIOXIDE 35 mmol/L (21-32); CHLORIDE 102 mmol/L (98-107); CREATININE 0.8 mg/dL (0.6-1.3); GLUCOSE 162 mg/dL (74-106); POTASSIUM 4.2 mmol/L (3.5-5.1); SODIUM SERUM 141 mmol/L (136-145); UREA NITROGEN, BLOOD 11 mg/dL (7-18)
[2019-08-02 04:59] LABS: ALANINE AMINOTRANSFERASE 14 U/L (12-78); ALBUMIN 2.9 g/dL (3.4-5.0); ALKALINE PHOSPHATASE 108 U/L (46-116); ASPARTATE AMINOTRANSFERASE 21 U/L (15-37); BILIRUBIN,DIRECT 0.2 mg/dL (0.0-0.2); BILIRUBIN,TOTAL 0.6 mg/dL (0.2-1.0); TOTAL PROTEIN, SERUM 6.6 g/dL (6.4-8.2)
[2019-08-02 05:05] LABS: ACETAMINOPHEN 0 ug/ml (10-30); ALCOHOL, BLOOD < 3 mg/dL (0-0); SALICYLATE 0.2 mg/dL (2.8-20.0)
--- NOTE | 2019-08-02 05:44 | NUR ---
CLINICAL FAXED TO [facility] FOR VOLUNTARY PSYCH ADMISSION.
--- NOTE | 2019-08-02 06:20 | NUR ---
PT RESTING COMFORTABLY IN BED. VSS. NO ACUTE DISTRESS NOTED. SITTER AT BEDSIDE FOR SAFETY. WILL CONTINUE TO MONITOR.
--- NOTE | 2019-08-02 07:35 | NUR ---
PATIENT VERBALIZED HE'S NO LONGER SUICIDAL. DR. JACOBS MADE AWARE AND SPOKE TO THE PATIENT.
--- NOTE | 2019-08-02 07:59 | NUR ---
PATIENT A/OX4, BREATHING EVEN AND UNLABORED, NO SOB NOTED, NEEDS ATTENDED, KEPT COMFORTABLE. Patient discharged to home in stable condition. Written and verbal after care instructions given. Patient verbalizes understanding of instruction. Belongings given back to patient.
[2019-08-02 08:00] VITALS: BP 157/77
== END 2019-08-02 08:00 | disposition home or self-care (01) ==
LOC: ER 03:54
DX: R45.851 Suicidal ideations (principal); F32.9 Major depressive disorder, single episode, unspecified; H54.8 Legal blindness, as defined in USA; I10 Essential (primary) hypertension; E11.9 Type 2 diabetes mellitus without complications; Z98.890 Other specified postprocedural states; Z86.73 Personal history of transient ischemic attack (TIA), and cerebral infarction without residual deficits; Z88.1 Allergy status to other antibiotic agents; Z91.018 Allergy to other foods; Z88.0 Allergy status to penicillin; Z88.8 Allergy status to other drugs, medicaments and biological substances; Z79.899 Other long term (current) drug therapy; Z79.82 Long term (current) use of aspirin
CPT/HCPCS: 36415; 80048; 80076; 80305; 80307; 80329; 81001; 85025; 99284; G0480; 81000-TC

== ENCOUNTER 2019-08-24 03:55 | Emergency (ER) | payer MEDICAID ==
[~2019-08-24] VITALS: Ht 175.3 cm; Wt 226.8 kg
[2019-08-24 03:58] VITALS: BP 151/87
--- NOTE | 2019-08-24 04:09 | NUR ---
PATIENT CAME TO ER BED 9 C/O LOWER BACK PAIN. PATIENT STATES THAT HE THINK IT MAY BE A URINARY TRACT INFECTION. PATIENT STATES THAT HE HAS FOUL SMELLING URINE. AAOX4. NO SOB. BREATHING EVENLY AND UNLABORED ON ROOM AIR. AMBULATORY WITH A STEADY GAIT.
--- NOTE | 2019-08-24 04:16 | NUR ---
URINE COLLECTED AND SENT TO LAB.
[2019-08-24 04:41] LABS: APPEARANCE,URINE CLEAR (CLEAR); BILIRUBIN,URINE NEGATIVE (NEGATIVE); BLOOD, URINE NEGATIVE Ery/uL (NEGATIVE); COLOR,URINE YELLOW (YELLOW); KETONES,URINE NEGATIVE (NEGATIVE); LEUKOCYTE ESTERASE ,URINE MODERATE (NEGATIVE); NITRITE, URINE NEGATIVE (NEGATIVE); PROTEIN,URINE NEGATIVE (NEGATIVE); UGLUCOSE 250 MG/DL mg/dL (NEGATIVE); UROBILINOGEN,URINE 0.2 EU/dL (0.2)
[2019-08-24] MEDS ORDERED: IBUPROFEN 400 MG TABLET ONE (04:49)
--- NOTE | 2019-08-24 04:53 | NUR ---
Patient discharged to home in stable condition. Written and verbal after care instructions given. Patient verbalizes understanding of instruction and RX. Pt denies pain now, vss. Ambulated with steady gait.
[2019-08-24] MEDS ORDERED: IBUPROFEN 400 MG TABLET PO ONE (05:00)
== END 2019-08-24 04:54 | disposition home or self-care (01) ==
LOC: ER 03:59
DX: M54.6 Pain in thoracic spine (principal); I10 Essential (primary) hypertension; Z98.890 Other specified postprocedural states; Z91.018 Allergy to other foods; Z88.1 Allergy status to other antibiotic agents; Z88.8 Allergy status to other drugs, medicaments and biological substances; Z79.899 Other long term (current) drug therapy; Z79.82 Long term (current) use of aspirin
CPT/HCPCS: 81000-TC

== ENCOUNTER 2019-10-03 02:48 | Emergency (ER) | payer MEDICAID ==
[~2019-10-03] VITALS: Ht 175.3 cm; Wt 226.8 kg
--- NOTE | 2019-10-03 03:00 | NUR ---
PT BIBSELF C/O SUICIDAL IDEATION WITH PLAN TO RUN INTO TRAFFIC. DENIES HI AT THIS TIME. PT AAOX4. CALM AND COOPERATIVE. RESPIRATIONS EVEN AND UNLABORED. SKIN INTACT. AMBULATORY WITH STEADY GAIT. NO ACUTE DISTRESS NOTED AT THIS TIME. SUICIDAL PRECAUTIONS INITIATED PT PLACED IN GOWN, BELONGINGS COLLECTED AND PLACED IN PATIENT LOCKER. SECURITY AT BEDSIDE FOR WANDING. SITTER AT BEDSIDE, WILL CONTINUE TO MONITOR
--- NOTE | 2019-10-03 03:00 | NUR ---
URINE COLLECTED AND SENT TO LAB
--- NOTE | 2019-10-03 03:14 | NUR ---
EMERGENCY DEPARTMENT MANAGER AT BEDSIDE FOR BLOOD DRAW
[2019-10-03 03:36] LABS: BASOPHILS # (AUTO) 0.1 /CMM (0.0-0.2); BASOPHILS % (AUTO) 1.8 % (0.0-2.0); EOSINOPHILS % (AUTO) 0.9 % (0.0-6.0); HEMATOCRIT 42 % (39-51); LYMPHOCYTES # (AUTO) 1.5 /CMM (0.8-4.8); MEAN CORPUSCULAR HGB CONC 31 g/dl (31.0-36.0); MEAN CORPUSCULAR VOLUME 78 fL (80-96); MONOCYTES # (AUTO) 0.4 /CMM (0.1-1.30); MONOCYTES % (AUTO) 6.2 % (2.0-12.0); NEUTROPHILS # (AUTO) 4.5 /CMM (1.8-8.9); NEUTROPHILS % (AUTO) 68.1 % (43.0-81.0); PLATELET COUNT (AUTO) 180 /CMM (150-450); RED BLOOD CELL COUNT(AUTO) 5.29 MIL/uL (4.5-6.0); WHITE BLOOD COUNT (AUTO) 6.6 K/uL (4.3-11.0)
[2019-10-03 04:21] LABS: APPEARANCE,URINE Clear (CLEAR); BILIRUBIN,URINE Negative (NEGATIVE); BLOOD, URINE Negative Ery/uL (NEGATIVE); COLOR,URINE Yellow (YELLOW); KETONES,URINE Trace (NEGATIVE); LEUKOCYTE ESTERASE ,URINE Negative (NEGATIVE); NITRITE, URINE Negative (NEGATIVE); PROTEIN,URINE Negative (NEGATIVE); UGLUCOSE Negative (NEGATIVE); UROBILINOGEN,URINE 0.2 EU/dL (0.2)
[2019-10-03 04:49] LABS: BACTERIA,URINE None seen /HPF (None Seen); RBC,URINE 0-2 /HPF (0-2); SQUAMOUS EPITHELIAL CELL,UR Few /HPF (None Seen); WBC,URINE 0-2 /HPF (0-3)
--- NOTE | 2019-10-03 05:00 | NUR ---
PT NOW STATING HE IS NO LONGER SUICIDAL. PT STATES "I'M GOING TO CALL MY PSYCHIATRIST TOMORROW". MD MARTINEZ
[2019-10-03 05:19] LABS: CALCIUM, SERUM 9.4 mg/dL (8.5-10.1); CARBON DIOXIDE 30 mmol/L (21-32); CHLORIDE 101 mmol/L (98-107); CREATININE 0.9 mg/dL (0.6-1.3); GLUCOSE 179 mg/dL (74-106); POTASSIUM 4.1 mmol/L (3.5-5.1); SODIUM SERUM 139 mmol/L (136-145); UREA NITROGEN, BLOOD 24 mg/dL (7-18)
[2019-10-03 05:25] LABS: ALANINE AMINOTRANSFERASE < 6 U/L (12-78); ALBUMIN 3.6 g/dL (3.4-5.0); ALKALINE PHOSPHATASE 125 U/L (46-116); ASPARTATE AMINOTRANSFERASE 26 U/L (15-37); BILIRUBIN,DIRECT 0.2 mg/dL (0.0-0.2); BILIRUBIN,TOTAL 0.8 mg/dL (0.2-1.0); TOTAL PROTEIN, SERUM 7.9 g/dL (6.4-8.2)
[2019-10-03 05:26] LABS: ACETAMINOPHEN < 2 ug/ml (10-30); ALCOHOL, BLOOD < 3 mg/dL (0-0); SALICYLATE < 2.0 mg/dL (2.8-20.0)
--- NOTE | 2019-10-03 05:33 | NUR ---
Patient discharged to home in stable condition. Written and verbal after care instructions given. Patient verbalizes understanding of instruction.Pt ambulatory with a steady gait
[2019-10-03 05:34] VITALS: BP 150/89
== END 2019-10-03 05:35 | disposition home or self-care (01) ==
LOC: ER 02:49
DX: R45.851 Suicidal ideations (principal); F32.9 Major depressive disorder, single episode, unspecified; I10 Essential (primary) hypertension; Z98.890 Other specified postprocedural states; Z86.73 Personal history of transient ischemic attack (TIA), and cerebral infarction without residual deficits; Z91.018 Allergy to other foods; Z88.1 Allergy status to other antibiotic agents; Z88.8 Allergy status to other drugs, medicaments and biological substances; Z79.82 Long term (current) use of aspirin; Z79.899 Other long term (current) drug therapy
CPT/HCPCS: 36415; 80048; 80076; 80305; 80307; 80329; 81001; 85025; 99285; G0480; 81000-TC

== ENCOUNTER 2019-10-16 03:24 | Emergency (ER) | payer MEDICAID ==
[~2019-10-16] VITALS: Ht 175.3 cm; Wt 226.8 kg
--- NOTE | 2019-10-16 03:40 | NUR ---
BIBS C/O DIZZINESS. PER PT "I THINK IT'S MY BLOOD SUGAR, I HAD 50UNITS OF INSULIN @2200 TO ER BED 9 VSS
[2019-10-16 04:59] LABS: BASOPHILS # (AUTO) 0.1 /CMM (0.0-0.2); EOSINOPHILS % (AUTO) 0.6 % (0.0-6.0); HEMATOCRIT 41 % (39-51); HEMOGLOBIN 13.3 g/dL (13.5-17.5); LYMPHOCYTES # (AUTO) 1.5 /CMM (0.8-4.8); LYMPHOCYTES % (AUTO) 26.1 % (20.0-44.0); MEAN CORPUSCULAR HGB CONC 32 g/dl (31.0-36.0); MEAN CORPUSCULAR VOLUME 79 fL (80-96); MONOCYTES # (AUTO) 0.7 /CMM (0.1-1.30); MONOCYTES % (AUTO) 11.8 % (2.0-12.0); NEUTROPHILS # (AUTO) 3.4 /CMM (1.8-8.9); NEUTROPHILS % (AUTO) 60.5 % (43.0-81.0); PLATELET COUNT (AUTO) 115 /CMM (150-450); RED BLOOD CELL COUNT(AUTO) 5.25 MIL/uL (4.5-6.0); WHITE BLOOD COUNT (AUTO) 5.5 K/uL (4.3-11.0)
[2019-10-16 05:15] LABS: CALCIUM, SERUM 9.2 mg/dL (8.5-10.1); CREATININE 0.8 mg/dL (0.6-1.3); POTASSIUM 4.5 mmol/L (3.5-5.1)
[2019-10-16 05:49] VITALS: BP 142/90
--- NOTE | 2019-10-16 05:49 | NUR ---
Patient discharged to home in stable condition. Written and verbal after care instructions given. Patient verbalizes understanding of instruction.
== END 2019-10-16 05:50 | disposition home or self-care (01) ==
LOC: ER 03:25
DX: R42 Dizziness and giddiness (principal); I87.8 Other specified disorders of veins; E11.622 Type 2 diabetes mellitus with other skin ulcer; L97.819 Non-pressure chronic ulcer of other part of right lower leg with unspecified severity; E66.01 Morbid (severe) obesity due to excess calories; Z68.45 Body mass index [BMI] 70 or greater, adult; I10 Essential (primary) hypertension; M86.9 Osteomyelitis, unspecified; Z98.890 Other specified postprocedural states; Z88.1 Allergy status to other antibiotic agents; Z88.8 Allergy status to other drugs, medicaments and biological substances; Z91.018 Allergy to other foods; Z79.84 Long term (current) use of oral hypoglycemic drugs; Z79.899 Other long term (current) drug therapy; Z79.82 Long term (current) use of aspirin; Z86.73 Personal history of transient ischemic attack (TIA), and cerebral infarction without residual deficits
CPT/HCPCS: 36415; 80048-TC; 82962-TC; 85025-TC

== ENCOUNTER 2019-12-02 00:38 | Emergency (ER) | payer MEDICAID ==
[~2019-12-02] VITALS: Ht 175.3 cm; Wt 226.8 kg
[2019-12-02 01:10] VITALS: BP 168/70
== END 2019-12-02 01:13 | disposition home or self-care (01) ==
LOC: ER 00:41
DX: L97.819 Non-pressure chronic ulcer of other part of right lower leg with unspecified severity (principal); R50.9 Fever, unspecified; I10 Essential (primary) hypertension; E11.9 Type 2 diabetes mellitus without complications; Z98.890 Other specified postprocedural states; Z86.73 Personal history of transient ischemic attack (TIA), and cerebral infarction without residual deficits; Z91.018 Allergy to other foods; Z88.1 Allergy status to other antibiotic agents; Z88.8 Allergy status to other drugs, medicaments and biological substances; Z79.84 Long term (current) use of oral hypoglycemic drugs; Z79.82 Long term (current) use of aspirin; Z79.899 Other long term (current) drug therapy

== ENCOUNTER 2019-12-15 02:03 | Emergency (ER) | payer MEDICAID, OTHER ==
[~2019-12-15] VITALS: Ht 170.2 cm; Wt 226.8 kg
[2019-12-15 02:49] VITALS: BP 160/89
--- NOTE | 2019-12-15 04:27 | NUR ---
PT LEFT WITHOUT ACI
== END 2019-12-15 04:27 | disposition home or self-care (01) ==
LOC: ER 02:05
DX: L97.818 Non-pressure chronic ulcer of other part of right lower leg with other specified severity (principal); I87.2 Venous insufficiency (chronic) (peripheral); E66.01 Morbid (severe) obesity due to excess calories; H54.8 Legal blindness, as defined in USA; I10 Essential (primary) hypertension; E11.9 Type 2 diabetes mellitus without complications; Z68.45 Body mass index [BMI] 70 or greater, adult; Z86.73 Personal history of transient ischemic attack (TIA), and cerebral infarction without residual deficits; Z98.890 Other specified postprocedural states; Z91.018 Allergy to other foods; Z88.0 Allergy status to penicillin; Z88.1 Allergy status to other antibiotic agents; Z88.8 Allergy status to other drugs, medicaments and biological substances; Z79.84 Long term (current) use of oral hypoglycemic drugs; Z79.82 Long term (current) use of aspirin; Z79.899 Other long term (current) drug therapy

== ENCOUNTER 2020-01-15 01:56 | Emergency (ER) | payer MEDICAID, OTHER ==
[~2020-01-15] VITALS: Ht 175.3 cm; Wt 226.8 kg
--- NOTE | 2020-01-15 02:17 | NUR ---
PT CAME TO THE ED C/O SI W/ A PLAN TO JUMP INTO TRAFFIC. PT DENIES HI. PT AAOX4, RESPIRATIONS EVEN AND UNLABORED ON RA W/ NAD NOTED. PT CHANGED INTO GOWN, BELONGINGS PLACED TO LOCKER. SUICIDE PRECAUTIONS IMPLEMENTED. 1:1 SITTER AT BEDSIDE FOR SAFETY
[2020-01-15 03:15] LABS: BASOPHILS % (AUTO) 0.2 % (0.0-2.0); EOSINOPHILS % (AUTO) 0.9 % (0.0-6.0); HEMATOCRIT 41 % (39-51); HEMOGLOBIN 12.3 g/dL (13.5-17.5); LYMPHOCYTES % (AUTO) 22.6 % (20.0-44.0); MEAN CORPUSCULAR HGB CONC 30 g/dl (31.0-36.0); MEAN CORPUSCULAR VOLUME 78 fL (80-96); MONOCYTES # (AUTO) 0.5 /CMM (0.1-1.30); MONOCYTES % (AUTO) 11.4 % (2.0-12.0); NEUTROPHILS # (AUTO) 2.9 /CMM (1.8-8.9); NEUTROPHILS % (AUTO) 64.9 % (43.0-81.0); PLATELET COUNT (AUTO) 120 /CMM (150-450); WHITE BLOOD COUNT (AUTO) 4.4 K/uL (4.3-11.0)
--- NOTE | 2020-01-15 03:16 | NUR ---
ROSSID SWABBED, SENT TO LAB.
[2020-01-15 03:45] LABS: ALANINE AMINOTRANSFERASE 27 U/L (12-78); ALBUMIN 3.1 g/dL (3.4-5.0); ALCOHOL, BLOOD < 3 mg/dL (0-0); ALKALINE PHOSPHATASE 129 U/L (46-116); ASPARTATE AMINOTRANSFERASE 42 U/L (15-37); BILIRUBIN,DIRECT 0.2 mg/dL (0.0-0.2); BILIRUBIN,TOTAL 0.6 mg/dL (0.2-1.0); CARBON DIOXIDE 33 mmol/L (21-32); CHLORIDE 97 mmol/L (98-107); POTASSIUM 5.1 mmol/L (3.5-5.1); SODIUM SERUM 134 mmol/L (136-145); TOTAL PROTEIN, SERUM 6.9 g/dL (6.4-8.2); UREA NITROGEN, BLOOD 18 mg/dL (7-18)
[2020-01-15 03:46] LABS: ACETAMINOPHEN < 2 ug/ml (10-30)
[2020-01-15 03:47] LABS: GLUCOSE 593 mg/dL (74-106)
[2020-01-15 03:53] LABS: BILIRUBIN,URINE NEGATIVE (NEGATIVE); BLOOD, URINE NEGATIVE Ery/uL (NEGATIVE); COLOR,URINE YELLOW (YELLOW); LEUKOCYTE ESTERASE ,URINE NEGATIVE (NEGATIVE); NITRITE, URINE NEGATIVE (NEGATIVE); PROTEIN,URINE NEGATIVE (NEGATIVE); UGLUCOSE >=1000 mg/dL (NEGATIVE); UROBILINOGEN,URINE 0.2 EU/dL (0.2)
[2020-01-15] MEDS ORDERED: INSULIN REGULAR, HUMAN 100 UNIT/ML 10 ML VIAL SQ ONE (04:00)
[2020-01-15 04:02] LABS: BACTERIA,URINE None seen /HPF (None Seen); RBC,URINE 0-2 /HPF (0-2); SQUAMOUS EPITHELIAL CELL,UR Few /HPF (None Seen); WBC,URINE 0-2 /HPF (0-3); YEAST,URINE Few /HPF (None Seen)
[2020-01-15 04:03] LABS: URINE AMORPHOUS URATE Few /HPF (None Seen)
[2020-01-15] MEDS ORDERED: INSULIN REGULAR, HUMAN 100 UNIT/ML 10 ML VIAL ONE (04:03)
--- NOTE | 2020-01-15 04:11 | NUR ---
PT AMBULATED TO THE E.D.
--- NOTE | 2020-01-15 05:06 | NUR ---
Patient is resting comfortably in bed with eyes closed. Easily aroused. VSS. Provided with more blankets.
--- NOTE | 2020-01-15 06:01 | NUR ---
SPOKE TO THE PT, STATED HE IS NOT SI/HI. AWARE.
--- NOTE | 2020-01-15 06:15 | NUR ---
Patient discharged to home in stable condition. Written and verbal after care instructions given. Patient verbalizes understanding of instruction. Pt ambulated out of E.D. vss.
[2020-01-15 06:16] VITALS: BP 121/73
[2020-01-15] MEDS ORDERED: IV NS 0.9% 1,000 ML BAG IV ONE (06:30)
[2020-01-15] MEDS ORDERED: INSULIN REGULAR, HUMAN 100 UNIT/ML 10 ML VIAL IV ONE (06:30)
== END 2020-01-15 06:16 | disposition home or self-care (01) ==
LOC: ER 02:00
DX: R45.851 Suicidal ideations (principal); F32.9 Major depressive disorder, single episode, unspecified; E66.01 Morbid (severe) obesity due to excess calories; Z68.45 Body mass index [BMI] 70 or greater, adult; Z86.73 Personal history of transient ischemic attack (TIA), and cerebral infarction without residual deficits; H54.8 Legal blindness, as defined in USA; H40.9 Unspecified glaucoma; Z88.1 Allergy status to other antibiotic agents; Z91.018 Allergy to other foods; Z79.4 Long term (current) use of insulin; Z79.899 Other long term (current) drug therapy; Z20.828 Contact with and (suspected) exposure to other viral communicable diseases; Z83.3 Family history of diabetes mellitus; Z82.49 Family history of ischemic heart disease and other diseases of the circulatory system; E11.65 Type 2 diabetes mellitus with hyperglycemia
CPT/HCPCS: 36415; 80048; 80076; 80299; 80307; 80320; 81001; 82962; 85025; 87426; 96372; 99285; C9803; J1815; G0480

== ENCOUNTER 2020-03-04 06:52 | Emergency (ER) | payer MEDICAID ==
[~2020-03-04] VITALS: Ht 175.3 cm; Wt 226.8 kg
[2020-03-04 07:41] VITALS: BP 179/99
--- NOTE | 2020-03-04 08:07 | NUR ---
SEEN AND EXAMINED BY DR. OCAMPO. PT PROVIDED UA.
[2020-03-04 08:25] LABS: EOSINOPHILS % (AUTO) 0.7 % (0.0-6.0); HEMATOCRIT 44 % (39-51); HEMOGLOBIN 13.7 g/dL (13.5-17.5); LYMPHOCYTES # (AUTO) 0.9 /CMM (0.8-4.8); LYMPHOCYTES % (AUTO) 14.9 % (20.0-44.0); MEAN CORPUSCULAR HGB CONC 31 g/dl (31.0-36.0); MEAN CORPUSCULAR VOLUME 79 fL (80-96); MONOCYTES # (AUTO) 0.4 /CMM (0.1-1.30); MONOCYTES % (AUTO) 7.6 % (2.0-12.0); NEUTROPHILS # (AUTO) 4.5 /CMM (1.8-8.9); NEUTROPHILS % (AUTO) 76.8 % (43.0-81.0); PLATELET COUNT (AUTO) 124 /CMM (150-450); RED BLOOD CELL COUNT(AUTO) 5.55 MIL/uL (4.5-6.0); WHITE BLOOD COUNT (AUTO) 5.8 K/uL (4.3-11.0)
[2020-03-04 08:31] LABS: CALCIUM, SERUM 9.1 mg/dL (8.5-10.1); CARBON DIOXIDE 33 mmol/L (21-32); CHLORIDE 99 mmol/L (98-107); CREATININE 0.8 mg/dL (0.6-1.3); POTASSIUM 4.6 mmol/L (3.5-5.1); SODIUM SERUM 135 mmol/L (136-145); UREA NITROGEN, BLOOD 8 mg/dL (7-18)
[2020-03-04 08:33] LABS: ALANINE AMINOTRANSFERASE 33 U/L (12-78); ALBUMIN 3.2 g/dL (3.4-5.0); ALCOHOL, BLOOD < 3 mg/dL (0-0); ALKALINE PHOSPHATASE 155 U/L (46-116); ASPARTATE AMINOTRANSFERASE 58 U/L (15-37); BILIRUBIN,DIRECT 0.3 mg/dL (0.0-0.2); BILIRUBIN,TOTAL 0.8 mg/dL (0.2-1.0); TOTAL PROTEIN, SERUM 7.6 g/dL (6.4-8.2)
[2020-03-04 08:35] LABS: GLUCOSE 431 mg/dL (74-106)
[2020-03-04 08:37] LABS: ACETAMINOPHEN < 10 ug/ml (10-30)
[2020-03-04] MEDS ORDERED: ARIPIPRAZOLE 5 MG TABLET PO ONE (09:00)
[2020-03-04] MEDS ORDERED: INSULIN REGULAR, HUMAN 100 UNIT/ML 10 ML VIAL SQ ONE (09:30)
[2020-03-04] MEDS ORDERED: INSULIN REGULAR, HUMAN 100 UNIT/ML 10 ML VIAL ONE (09:57)
--- NOTE | 2020-03-04 13:22 | NUR ---
Patient is a 34-year-old male. Patient is alert and oriented x4. Patient presented to [facility] ED with suicidal ideation to run into traffic. Patient reported to this SW that he has a history of borderline personality disorder, bipolar disorder, and suicidal ideations. Patient reported to this SW that his aunt of COVID a few weeks ago and he has been feeling depressed. Patient reports that he has been working throughout the COVID-19 pandemic however has not felt great. Patient reports that he was at [facility] and was informed he needed medical clearance which is why the patient presented to [facility] ED. Patient reported no homicidal ideation. Patient denied report auditory or visual hallucinations. Patient and SW discussed voluntary psychiatric hospitalization and patient remained agreeable. Patient was calm and cooperative throughout this assessment. Patient thought process was clear. Plan: SW to fax clinicals to [facility] [phone] (fax) and SW to inform [facility] regarding this referral. SW to follow-up with [facility] if no update is provided. SW remains available for all needs regarding this patient.
--- NOTE | 2020-03-04 16:47 | NUR ---
2pm SW referred patient to [facility] . 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
--- NOTE | 2020-03-04 19:29 | NUR ---
FACESHEET AND CLINICAL FAXED TO [facility] INTAKE FOR VOLUNTARY PSYCH ADMISSION.
--- NOTE | 2020-03-04 19:36 | NUR ---
PT STATES "I DON'T THINK I WANT TO GO TO [facility] ANYMORE, I FEEL BETTER AND I WANT TO GO HOME, IM NOT SUICIDAL". PT AAOX4 NO ACUTE DISTRESS NOTED, RESP EVEN AND UNLABORED. PT DENIES SI/HI.
--- NOTE | 2020-03-04 19:39 | NUR ---
PT REFUSE TO WAIT FOR D/C PAPERWORK AND LEFT ER.
== END 2020-03-04 19:43 | disposition home or self-care (01) ==
LOC: ER 06:54
DX: R45.851 Suicidal ideations (principal); Z79.4 Long term (current) use of insulin; H54.8 Legal blindness, as defined in USA; E66.01 Morbid (severe) obesity due to excess calories; Z68.45 Body mass index [BMI] 70 or greater, adult; I10 Essential (primary) hypertension; Z86.73 Personal history of transient ischemic attack (TIA), and cerebral infarction without residual deficits; H40.9 Unspecified glaucoma; F31.9 Bipolar disorder, unspecified; F60.3 Borderline personality disorder; Z86.19 Personal history of other infectious and parasitic diseases; Z88.1 Allergy status to other antibiotic agents; Z88.8 Allergy status to other drugs, medicaments and biological substances; Z91.018 Allergy to other foods; E11.65 Type 2 diabetes mellitus with hyperglycemia; Z79.84 Long term (current) use of oral hypoglycemic drugs; Z79.82 Long term (current) use of aspirin; Z79.899 Other long term (current) drug therapy; R74.01 Elevation of levels of liver transaminase levels
CPT/HCPCS: 36415; 80048; 80076; 80299; 80307; 80320; 82962; 85025; 87426; 96372; 99285; C9803; J1815; G0480

== ENCOUNTER 2020-04-20 00:49 | Emergency (ER) | payer MEDICAID ==
[~2020-04-20] VITALS: Ht 175.3 cm; Wt 226.8 kg
[~2020-04-20 00:49] MED LIST changes: -LISI-607 PO; +LISI-768 PO
--- NOTE | 2020-04-20 00:59 | NUR ---
PT AAOX4. AMBULATRY WITH STEADY GAIT. BIBSELF C/O FATIGUE X1 DAY. PER PT HE WAS DIAGNOSED WITH UTI ON 04/01/20. CURRENTLY ON ANTIBIOTICS VIA PICC LINE. PLACED IN BED 7 ON MONITOR AND PULSE OX.
[2020-04-20] MEDS ORDERED: KETOROLAC TROMETHAMINE INJ 30 MG/ML VIAL ONE (01:26)
[2020-04-20] MEDS ORDERED: IV NS 0.9% 1,000 ML BAG IV ONE (01:30)
[2020-04-20] MEDS ORDERED: IV NS 0.9% 500 ML BAG IV ONE (01:30)
[2020-04-20] MEDS ORDERED: KETOROLAC TROMETHAMINE INJ 30 MG/ML VIAL IV ONE (01:30)
[2020-04-20 01:42] LABS: BILIRUBIN,URINE NEGATIVE (NEGATIVE); COLOR,URINE YELLOW (YELLOW); LEUKOCYTE ESTERASE ,URINE NEGATIVE (NEGATIVE); NITRITE, URINE NEGATIVE (NEGATIVE); PH,URINE 7.5 (5.0-8.0); PROTEIN,URINE NEGATIVE (NEGATIVE); UGLUCOSE 250 MG/DL mg/dL (NEGATIVE); UROBILINOGEN,URINE 0.2 EU/dL (0.2)
--- NOTE | 2020-04-20 01:47 | NUR ---
ROSSID SWABBED, SENT TO LAB.
[2020-04-20 02:23] LABS: BASOPHILS % (AUTO) 0.4 % (0.0-2.0); EOSINOPHILS % (AUTO) 1.2 % (0.0-6.0); HEMATOCRIT 40 % (39-51); HEMOGLOBIN 12.5 g/dL (13.5-17.5); LYMPHOCYTES % (AUTO) 19.2 % (20.0-44.0); MEAN CORPUSCULAR HGB CONC 31 g/dl (31.0-36.0); MEAN CORPUSCULAR VOLUME 78 fL (80-96); MONOCYTES # (AUTO) 0.5 /CMM (0.1-1.30); MONOCYTES % (AUTO) 9.4 % (2.0-12.0); NEUTROPHILS # (AUTO) 3.8 /CMM (1.8-8.9); NEUTROPHILS % (AUTO) 69.8 % (43.0-81.0); PLATELET COUNT (AUTO) 112 /CMM (150-450); RED BLOOD CELL COUNT(AUTO) 5.18 MIL/uL (4.5-6.0); WHITE BLOOD COUNT (AUTO) 5.4 K/uL (4.3-11.0)
[2020-04-20 02:42] LABS: CALCIUM, SERUM 9.3 mg/dL (8.5-10.1); CREATININE 0.8 mg/dL (0.6-1.3); POTASSIUM 3.9 mmol/L (3.5-5.1)
[2020-04-20 02:48] LABS: ALBUMIN 3.4 g/dL (3.4-5.0); BILIRUBIN,DIRECT 0.2 mg/dL (0.0-0.2); BILIRUBIN,TOTAL 0.7 mg/dL (0.2-1.0); TOTAL PROTEIN, SERUM 7.5 g/dL (6.4-8.2)
--- NOTE | 2020-04-20 03:32 | NUR ---
ADMISSION PACKET AND CLINICAL INFORMATION PROVIDED TO ADMITTING DEPT
--- NOTE | 2020-04-20 04:06 | NUR ---
CALLED DR. GUERIN REGARDING ADMISSION. PER DR. GUERIN, NOT HEEL BOOM OPERATOR AND REFERRED TO CALL EXCHANGE ([phone])
--- NOTE | 2020-04-20 04:08 | NUR ---
CALLED [facility] REGARDING ADMISSION ([phone]). PENDING CALL BACK FROM HOSPITALIST
--- NOTE | 2020-04-20 04:16 | NUR ---
DR. OCAMPO SPEAKING WITH DR. CORRALES REGARDING ADMISSION
--- NOTE | 2020-04-20 04:31 | NUR ---
PT STATED HE WOULD LIKE TO GO HOME, PT WILL BE DISCHARGE.
[2020-04-20 04:52] VITALS: BP 129/64
--- NOTE | 2020-04-20 04:52 | NUR ---
Patient discharged to home in stable condition. Written and verbal after care instructions given. Patient verbalizes understanding of instruction.
== END 2020-04-20 04:57 | disposition home or self-care (01) ==
LOC: ER 00:50
DX: R53.1 Weakness (principal); R42 Dizziness and giddiness; Z20.822 Contact with and (suspected) exposure to COVID-19; E66.01 Morbid (severe) obesity due to excess calories; Z68.45 Body mass index [BMI] 70 or greater, adult; Z74.01 Bed confinement status; L97.819 Non-pressure chronic ulcer of other part of right lower leg with unspecified severity; L08.9 Local infection of the skin and subcutaneous tissue, unspecified; Z86.73 Personal history of transient ischemic attack (TIA), and cerebral infarction without residual deficits; H54.8 Legal blindness, as defined in USA; E11.9 Type 2 diabetes mellitus without complications; Z79.4 Long term (current) use of insulin; H40.9 Unspecified glaucoma; Z88.1 Allergy status to other antibiotic agents; Z88.0 Allergy status to penicillin; Z91.018 Allergy to other foods
CPT/HCPCS: 36415; 80048; 80076; 81003; 85025; 85730; 87040 ×2; 87086; 87426; 93005; 96374; 99284; C9803; J1885; J7040; J7030

== ENCOUNTER 2020-06-27 04:17 | Emergency (ER) | payer MEDICAID ==
[~2020-06-27] VITALS: Ht 170.2 cm; Wt 226.8 kg
[~2020-06-27 04:17] MED LIST changes: -ALBU8.5H4 INH; -BRIM5DRO3 EACHEYE; -CLON0.5T PO; -TIMO5DRO4 EACHEYE
--- NOTE | 2020-06-27 04:38 | NUR ---
patient to er bed 11 c/o right motley pain with wound. patient is aaox4. no sob. breathing evenly and unlabored on room air. connected to the monitor.
[2020-06-27 04:49] LABS: BILIRUBIN,URINE Negative (NEGATIVE); COLOR,URINE YELLOW (YELLOW); LEUKOCYTE ESTERASE ,URINE Negative (NEGATIVE); NITRITE, URINE Negative (NEGATIVE); PH,URINE 5.5 (5.0-8.0); PROTEIN,URINE Negative (NEGATIVE); UGLUCOSE >=1000 mg/dL (NEGATIVE); UROBILINOGEN,URINE 0.2 EU/dL (0.2)
[2020-06-27 05:18] LABS: BASOPHILS % (AUTO) 0.6 % (0.0-2.0); EOSINOPHILS % (AUTO) 1.9 % (0.0-6.0); HEMATOCRIT 45 % (39-51); HEMOGLOBIN 14.5 g/dL (13.5-17.5); LYMPHOCYTES # (AUTO) 1.2 /CMM (0.8-4.8); LYMPHOCYTES % (AUTO) 20.4 % (20.0-44.0); MEAN CORPUSCULAR HGB CONC 32 g/dl (31.0-36.0); MEAN CORPUSCULAR VOLUME 78 fL (80-96); MONOCYTES # (AUTO) 0.4 /CMM (0.1-1.30); MONOCYTES % (AUTO) 7.3 % (2.0-12.0); NEUTROPHILS # (AUTO) 4.1 /CMM (1.8-8.9); NEUTROPHILS % (AUTO) 69.8 % (43.0-81.0); PLATELET COUNT (AUTO) 155 /CMM (150-450); RED BLOOD CELL COUNT(AUTO) 5.79 MIL/uL (4.5-6.0); WHITE BLOOD COUNT (AUTO) 5.9 K/uL (4.3-11.0)
[2020-06-27 05:27] LABS: CREATININE 0.8 mg/dL (0.6-1.3)
[2020-06-27 05:29] LABS: BACTERIA,URINE None seen /HPF (None Seen); RBC,URINE 0-2 /HPF (0-2); SQUAMOUS EPITHELIAL CELL,UR Few /HPF (None Seen); WBC,URINE 0-2 /HPF (0-3)
[2020-06-27 05:58] VITALS: BP 132/95
--- NOTE | 2020-06-27 05:58 | NUR ---
Patient discharged to home in stable condition. Written and verbal after care instructions given. Patient verbalizes understanding of instruction.
== END 2020-06-27 05:58 | disposition home or self-care (01) ==
LOC: ER 04:21
DX: S80.921A Unspecified superficial injury of right lower leg, initial encounter (principal); I10 Essential (primary) hypertension; E11.9 Type 2 diabetes mellitus without complications; M86.9 Osteomyelitis, unspecified; F17.210 Nicotine dependence, cigarettes, uncomplicated; E66.01 Morbid (severe) obesity due to excess calories; Z68.45 Body mass index [BMI] 70 or greater, adult; Z98.890 Other specified postprocedural states; Z91.018 Allergy to other foods; Z88.1 Allergy status to other antibiotic agents; Z88.8 Allergy status to other drugs, medicaments and biological substances; Z79.84 Long term (current) use of oral hypoglycemic drugs; Z79.82 Long term (current) use of aspirin; Z79.899 Other long term (current) drug therapy; X58.XXXA Exposure to other specified factors, initial encounter; Y93.89 Activity, other specified; Y92.89 Other specified places as the place of occurrence of the external cause; Y99.8 Other external cause status
CPT/HCPCS: 36415; 73590-TC; 80048-TC; 81001; 83605-TC; 85025-TC; 87040-TC

== ENCOUNTER 2020-09-14 03:12 | Inpatient (IN) | payer MEDICAID ==
[~2020-09-14] VITALS: Ht 175.3 cm; Wt 222.7 kg
--- NOTE | 2020-09-14 04:25 | NUR ---
PATIENT CAME TO THE ER BED 1 C/O RIGHT BETANCUR WOUND. PATIENT HAS HX OF DIABETES. PATIENT'S IS ALERT AND ORIENTED x4. PATIENT IS AMBULATORY WITH A STEADY GAIT. CONNECTED TO THE MONITOR.
[2020-09-14 04:26] LABS: BASOPHILS % (AUTO) 0.5 % (0.0-2.0); EOSINOPHILS % (AUTO) 0.6 % (0.0-6.0); HEMATOCRIT 44 % (39-51); HEMOGLOBIN 14.2 g/dL (13.5-17.5); LYMPHOCYTES # (AUTO) 1.4 K/uL (0.8-4.8); LYMPHOCYTES % (AUTO) 20.3 % (20.0-44.0); MEAN CORPUSCULAR HGB CONC 32 g/dl (31.0-36.0); MEAN CORPUSCULAR VOLUME 81 fL (80-96); MONOCYTES # (AUTO) 0.5 K/uL (0.1-1.30); MONOCYTES % (AUTO) 7.4 % (2.0-12.0); NEUTROPHILS # (AUTO) 4.8 K/uL (1.8-8.9); NEUTROPHILS % (AUTO) 71.2 % (43.0-81.0); PLATELET COUNT (AUTO) 135 K/uL (150-450); RED BLOOD CELL COUNT(AUTO) 5.47 MIL/uL (4.5-6.0); WHITE BLOOD COUNT (AUTO) 6.7 K/uL (4.3-11.0)
[2020-09-14] MEDS ORDERED: HYDROCODONE/APAP 10/325MG TABLET PO ONE (04:30)
[2020-09-14] MEDS ORDERED: VANCOMYCIN 1 GM in IV D5W 250 ML IV ONE ×2 (04:30→08:30)
[2020-09-14] MEDS ORDERED: HYDROCODONE/APAP 10/325MG TABLET ONE (04:30)
[2020-09-14] MEDS ORDERED: VANCOMYCIN 1 GM VIAL ONE (04:30)
[2020-09-14 04:42] LABS: ALBUMIN 3.4 g/dL (3.4-5.0); BILIRUBIN,DIRECT 0.2 mg/dL (0.0-0.2); BILIRUBIN,TOTAL 0.8 mg/dL (0.2-1.0); CALCIUM, SERUM 9.1 mg/dL (8.5-10.1); CREATININE 0.9 mg/dL (0.6-1.3); POTASSIUM 4.4 mmol/L (3.5-5.1); TOTAL PROTEIN, SERUM 7.8 g/dL (6.4-8.2)
--- NOTE | 2020-09-14 04:49 | NUR ---
RAD AT BED SIDE
--- NOTE | 2020-09-14 06:48 | NUR ---
Per [place] CM, pt approved to stay
[2020-09-14] MEDS ORDERED: DIVA500T2 PO (06:54)
[2020-09-14] MEDS ORDERED: TRAZ-257 PO (06:54)
--- NOTE | 2020-09-14 07:22 | NUR ---
RECEIVED REPORT FROM BARBARA PERAZA FOR PREETI. PT IS AAOX4, NOT IN RESPIRATORY DISTRESS, V/S STABLE, KEPT RESTED AND COMFORTABLE. WILL CONTINUE TO MONITOR.
--- NOTE | 2020-09-14 07:59 | NUR ---
TEXTED DR. CHOI FOR MRI APPROVAL
[2020-09-14] MEDS ORDERED: ACETAMINOPHEN 325 MG TABLET PO PRN (08:00)
[2020-09-14] MEDS ORDERED: ZOLPIDEM TARTRATE 5 MG TABLET PO PRN (08:00)
[2020-09-14] MEDS ORDERED: HYDROCODONE/APAP 5/325MG TABLET PO PRN (08:00)
[2020-09-14] MEDS ORDERED: DEXTROSE 50%-WATER 50 ML DISP.SYRIN IV PRN (08:00)
[2020-09-14] MEDS ORDERED: CEFEPIME 1 GM in IV D5W 50 ML IV SCH (08:00)
--- NOTE | 2020-09-14 08:22 | NUR ---
NURSING CALLED GOING TO BED 310-2. NURSE FOR REPORT IS HYACINTH
--- NOTE | 2020-09-14 08:29 | NUR ---
REPORT GIVEN TO BARBARA CLAROS FOR PREETI. WITH ONGOING VANCOMYCIN ANTIBIOTIC.
[2020-09-14] MEDS ORDERED: VANCOMYCIN 1 GM in IV D5W 250 ML IV SCH (08:30)
--- NOTE | 2020-09-14 09:15 | NUR ---
RN NOTES PATIENT TRANSFERRED TO UNIT AT ROOM 310-2 VIA [facility], ACCOMPANIED BY 2 ER NURSES.
--- NOTE | 2020-09-14 09:30 | NUR ---
RN NOTES PHOTO OF SKIN ISSUE TAKEN AND PLACED IN PATIENT'S CHART.
[2020-09-14 10:14] VITALS: BP 138/68
[2020-09-14] MEDS: INSULIN GLARGINE, 100 UNIT/ML CARTRIDGE SQ SCH (10:19)
[2020-09-14] MEDS: CEFEPIME 2 GM in IV D5W 100 ML IV SCH ×3 (10:38→20:08)
[2020-09-14] MEDS: ARIPIPRAZOLE 5 MG TABLET PO SCH (10:54)
[2020-09-14] MEDS: DIVALPROEX SODIUM 500 MG TABLET.DR PO SCH ×3 (10:54→16:28)
[2020-09-14] MEDS: METFORMIN 850 MG TABLET PO SCH ×2 (10:55→16:28)
[2020-09-14] MEDS: GABAPENTIN 300 MG CAPSULE PO SCH ×3 (10:55→16:28)
[2020-09-14] MEDS: buPROPion SR 150 MG TABLET.ER PO SCH ×2 (10:55→16:28)
[2020-09-14] MEDS: LISINOPRIL (5MG) 5 MG TABLET PO SCH (10:55)
[2020-09-14] MEDS: AMLODIPINE BESYLATE 5 MG TABLET PO SCH (10:55)
[2020-09-14] MEDS: BLOOD SUGAR DIAGNOSTIC 1 EACH STRIP VI SCH ×3 (11:47→21:26)
[2020-09-14 16:00] VITALS: BP 112/62
--- NOTE | 2020-09-14 17:57 | NUR ---
RN NOTES PATIENT'S FAMILY CURRENTLY AT BEDSIDE VISITING THE PATIENT.
--- NOTE | 2020-09-14 18:48 | NUR ---
RN NOTES ADMITTED THIS 35-YEAR-OLD MALE FROM HOME W/ ADMITTING DX OF CHRONIC RLE DIABETIC ULCER AND HX OF DM, HTN, TIA, AND BPD. A/O X4, FRISIAN-SPEAKING BUT UNDERSTANDS [place]URKM[place] AND ABLE TO MAKE NEEDS KNOWN. BREATHING EVEN AND UNLABORED, TOLERATING ROOM AIR, NO RESPIRATORY DISTRESS NOTED. MED-SURG. IV LINE ON LFA #20 INTACT AND PATENT; DUE PO AND IV MEDS ADMINISTERED TODAY. DR. GUERIN AWARE OF ADMISSION. SAFETY MEASURES IN PLACE. WILL ENDORSE TO DEPUTY BAILIFF RN FOR PREETI.
--- NOTE | 2020-09-14 19:30 | NUR ---
MS RN OPENING NOTE RECEIVED PT IN BED WITH EYES CLOSED, AROUSABLE TO STIMULATION. A/O X4. PT IS CITIZEN OF [place]-SPEAKING, UNDERSTANDS [place], AND ABLE TO MAKE NEEDS KNOWN. PT IS STABLE ON ROOM AIR. NO SOB OR S/S OF RESPIRATORY DISTRESS NOTED. IV ACCESS IN LFA #20, INTACT AND PATENT. SAFETY MEASURES MAINTAINED. BED IN LOWEST LOCKED POSITION, HOB ELEVATED, SIDE RAILS UP X2. CALL LIGHT AND TABLE WITHIN REACH. WILL CONTINUE WITH PLAN OF CARE.
[2020-09-14 20:03] VITALS: BP_SYST 111; BP_SYST 159; BP_DIAS 54; BP_DIAS 87
--- NOTE | 2020-09-14 20:30 | NUR ---
RADIOLOGY CALLED AND STATED THAT THEY HAD TO CANCEL STAT MRI OF RLL WITHOUT CONTRAST. MAX WEIGHT FOR MRI TABLE IS 310 LBS. PT WEIGHS [address] GUERIN MADE AWARE AND NO NEW ORDERS AT THIS TIME.
[2020-09-14] MEDS: ATORVASTATIN 10 MG TABLET PO SCH (21:04)
[2020-09-14] MEDS: TRAZODONE 50 MG TABLET PO SCH (21:04)
[2020-09-14] MEDS: VANCOMYCIN 1.5 GM in IV D5W 500 ML IV SCH (21:26)
[2020-09-14] MEDS: *INSULIN REGULAR(HUMULIN R)HUM 100 UNIT/ML VIAL SQ PRN (21:38)
[2020-09-15] MEDS: CEFEPIME 2 GM in IV D5W 100 ML IV SCH ×3 (04:31→20:19)
[2020-09-15 06:23] LABS: BASOPHILS % (AUTO) 0.2 % (0.0-2.0); HEMATOCRIT 40 % (39-51); HEMOGLOBIN 12.9 g/dL (13.5-17.5); LYMPHOCYTES # (AUTO) 1.2 K/uL (0.8-4.8); LYMPHOCYTES % (AUTO) 22.2 % (20.0-44.0); MEAN CORPUSCULAR HGB CONC 32 g/dl (31.0-36.0); MEAN CORPUSCULAR VOLUME 82 fL (80-96); MONOCYTES # (AUTO) 0.4 K/uL (0.1-1.30); MONOCYTES % (AUTO) 7.4 % (2.0-12.0); NEUTROPHILS # (AUTO) 3.8 K/uL (1.8-8.9); NEUTROPHILS % (AUTO) 69.2 % (43.0-81.0); PLATELET COUNT (AUTO) 122 K/uL (150-450); RED BLOOD CELL COUNT(AUTO) 4.91 MIL/uL (4.5-6.0); WHITE BLOOD COUNT (AUTO) 5.5 K/uL (4.3-11.0)
--- NOTE | 2020-09-15 06:28 | NUR ---
MS RN CLOSING NOTE PT IS AWAKE IN BED. A/O X4. PT IS STABLE ON ROOM AIR. NO SOB OR S/S OF RESPIRATORY DISTRESS NOTED. PT DENIES PAIN OR DISCOMFORT AT THIS TIME. IV ACCESS IS INTACT, PATENT, AND FLUSHING WELL. ALL NEEDS HAVE BEEN MET. SAFETY PRECAUTIONS MAINTAINED AT ALL TIMES. BED IN LOWEST LOCKED POSITION, HOB ELEVATED, SIDE RAILS UP X2. CALL LIGHT AND TABLE WITHIN REACH. WILL ENDORSE TO ONCOMING NURSE FOR PREETI.
[2020-09-15 06:38] LABS: CALCIUM, SERUM 8.7 mg/dL (8.5-10.1); CREATININE 0.8 mg/dL (0.6-1.3); POTASSIUM 4.3 mmol/L (3.5-5.1)
[2020-09-15] MEDS: BLOOD SUGAR DIAGNOSTIC 1 EACH STRIP VI SCH ×4 (06:39→21:18)
[2020-09-15] MEDS: INSULIN REGULAR, HUMAN 100 UNIT/ML 3 ML VIAL SQ PRN ×2 (06:42→12:18)
[2020-09-15 06:49] LABS: ALBUMIN 2.8 g/dL (3.4-5.0); BILIRUBIN,TOTAL 0.9 mg/dL (0.2-1.0); TOTAL PROTEIN, SERUM 6.8 g/dL (6.4-8.2)
--- NOTE | 2020-09-15 07:44 | NUR ---
WOUND CARE CONSULT: PT PRESENTS WITH WOUNDS TO RT LOWER LEG, PRESENT ON ADMISSION. DR LIU CALLED FOR DPM CONSULT. PT IS AMBULATORY BUT NEEDS BARIATRIC BED TO ACCOMODATE HIS GIRTH. BARIATRIC BED ORDERED. RECOMMENDATIONS MADE FOR SKIN PROTECTION. DISCUSSED WITH NURSING STAFF. MD IN AGREEMENT WITH PLAN OF CARE.
[2020-09-15] MEDS ORDERED: Z GUARD REMEDY 2 OZ OINT TP PRN (08:00)
[2020-09-15 08:10] VITALS: BP 135/88
[2020-09-15] MEDS ORDERED: Z GUARD REMEDY 2 OZ OINT TP SCH (09:00)
[2020-09-15] MEDS: ARIPIPRAZOLE 5 MG TABLET PO SCH ×2 (09:00→09:10)
[2020-09-15] MEDS: VANCOMYCIN 1.5 GM in IV D5W 500 ML IV SCH ×2 (09:09→21:00)
[2020-09-15] MEDS: INSULIN GLARGINE, 100 UNIT/ML CARTRIDGE SQ SCH (09:12)
[2020-09-15] MEDS: DIVALPROEX SODIUM 500 MG TABLET.DR PO SCH ×3 (09:13→17:37)
[2020-09-15] MEDS: METFORMIN 850 MG TABLET PO SCH ×2 (09:13→17:37)
[2020-09-15] MEDS: buPROPion SR 150 MG TABLET.ER PO SCH ×2 (09:13→17:37)
[2020-09-15] MEDS: LISINOPRIL (5MG) 5 MG TABLET PO SCH (09:14)
[2020-09-15] MEDS: GABAPENTIN 300 MG CAPSULE PO SCH ×3 (09:14→17:37)
[2020-09-15] MEDS: AMLODIPINE BESYLATE 5 MG TABLET PO SCH (09:15)
[2020-09-15] MEDS: BRIMONIDINE TARTRATE OPHT SOLN 5 ML BOTTLE EACHEYE SCH ×3 (09:18→17:42)
[2020-09-15] MEDS: TIMOLOL 0.25% SOL OPHTH 10 ML BOTTLE EACHEYE SCH ×2 (09:18→17:41)
[2020-09-15 16:10] VITALS: BP 100/49
--- NOTE | 2020-09-15 19:34 | NUR ---
Closing Note: Pt A&Ox4, denies pain at this time, v/s stable. Bed locked in low position, call light within reach. Floor free of clutter. Offered to make pt more comfortable. All needs met at this time.
--- NOTE | 2020-09-15 19:35 | NUR ---
MS RN OPENING NOTE RECEIVED PT AWAKE IN BED. A/O X4. PT IS TONG[place]-SPEAKING, UNDERSTANDS TANZANIAN, AND ABLE TO MAKE NEEDS KNOWN. PT IS STABLE ON ROOM AIR. NO SOB OR S/S OF RESPIRATORY DISTRESS NOTED. IV ACCESS IN LFA #20, INTACT AND PATENT. SAFETY MEASURES MAINTAINED. BED IN LOWEST LOCKED POSITION, HOB ELEVATED, SIDE RAILS UP X2. CALL LIGHT AND TABLE WITHIN REACH. WILL CONTINUE WITH PLAN OF CARE.
[2020-09-15 20:12] VITALS: BP 123/55
[2020-09-15] MEDS: ATORVASTATIN 10 MG TABLET PO SCH (21:18)
[2020-09-15] MEDS: TRAZODONE 50 MG TABLET PO SCH (21:18)
[2020-09-15] MEDS: *INSULIN REGULAR(HUMULIN R)HUM 100 UNIT/ML VIAL SQ PRN (21:28)
[2020-09-15] MEDS ORDERED: METRONIDAZOLE 500 MG TABLET PO SCH (22:00)
--- NOTE | 2020-09-16 00:55 | NUR ---
RN NOTE PT SIGNED AMA AT THIS TIME AND STATED HE WANTED TO LEAVE DUE TO "URGENT WORK REASONS." EDUCATED PT ON RISKS OF LEAVING AMA AND PT UNDERSTANDS. PT STATED THAT HE DID NOT NEED TO TALK TO THE DR AT THIS TIME. CARMEN THOMPSON NP AND REGINA, CHARGE NURSE MADE AWARE. ID BAND REMOVED. IV ACCESS REMOVED, PRESSURE APPLIED, AND SECURED WITH GAUZE AND TAPE. NO BLEEDING OR INFILTRATION NOTED. PT ESCORTED TO LOBBY WITH PERSONAL BELONGINGS, ACCOMPANIED BY NATALY SANTOS.
[2020-09-16] MEDS ORDERED: THERAHONEY GEL 1.5 OZ TUBE TP SCH (09:00)
--- NOTE | 2020-09-16 16:10 | NUR ---
SS Consult requested for "wound". SS to follow up at a later time.
== END 2020-09-16 00:55 | disposition left against medical advice (07) | DRG 951 ==
LOC: ER 03:20 → MED 08:55
PROVIDERS: ADMIT Internal Medicine; ATTEND Internal Medicine
PROC: 0LBN0ZZ Excision of Right Lower Leg Tendon, Open Approach (ICD-10-PCS; principal; 2020-09-15)
DX: E11.621 Type 2 diabetes mellitus with foot ulcer (principal); L97.919 Non-pressure chronic ulcer of unspecified part of right lower leg with unspecified severity; E11.40 Type 2 diabetes mellitus with diabetic neuropathy, unspecified; L03.115 Cellulitis of right lower limb; E44.1 Mild protein-calorie malnutrition; E66.01 Morbid (severe) obesity due to excess calories; E11.65 Type 2 diabetes mellitus with hyperglycemia; I11.0 Hypertensive heart disease with heart failure; I50.9 Heart failure, unspecified; E78.5 Hyperlipidemia, unspecified; H40.9 Unspecified glaucoma; F17.210 Nicotine dependence, cigarettes, uncomplicated; F31.9 Bipolar disorder, unspecified; I89.0 Lymphedema, not elsewhere classified; J45.909 Unspecified asthma, uncomplicated; Z79.84 Long term (current) use of oral hypoglycemic drugs; Z68.45 Body mass index [BMI] 70 or greater, adult; Z20.822 Contact with and (suspected) exposure to COVID-19; H54.7 Unspecified visual loss; Z82.3 Family history of stroke; Z79.899 Other long term (current) drug therapy; Z79.82 Long term (current) use of aspirin; Z86.73 Personal history of transient ischemic attack (TIA), and cerebral infarction without residual deficits
CPT/HCPCS: 36415; 73590-TC; 80048-TC; 80053-TC; 80061-TC; 80076-TC; 80202-TC; 82962-TC; 85025-TC; 85730-TC; 86140-TC; 87070-TC; 87081-TC; 87186-TC; C9803; G0378; J0692; J1815; J3370; J7060

== ENCOUNTER 2021-02-12 23:45 | Emergency (ER) | payer MEDICAID ==
[~2021-02-12] VITALS: Ht 175.3 cm; Wt 195.0 kg
[~2021-02-12 23:45] MED LIST changes: +DIVA500T2 PO; +TRAZ-257 PO
--- NOTE | 2021-02-13 00:08 | NUR ---
PT BIBSELF C/O "CHEST TIGHTNESS" X1 DAY. PT AAOX4 BREATHING EVENLY AND UNLABORED. PER PT, TOOK 81MG AND TYLENNOL GIS DATABASE ADMINISTRATOR. PT ATTACHED TO MONITOR AND POX. MD AT BEDSIDE.PT GIVEN BLANKET AND CALL LIGHT WITHIN REACH.
[2021-02-13] MEDS ORDERED: CEPHALEXIN MONOHYDRATE 500 MG CAPSULE PO ONE ×2 (00:58→01:00)
--- NOTE | 2021-02-13 01:05 | NUR ---
RISK CONTROL FIELD REPRESENTATIVE AT BEDSIDE FOR BLOOD DRAW
[2021-02-13 02:41] LABS: BASOPHILS % (AUTO) 0.3 % (0.0-2.0); EOSINOPHILS % (AUTO) 1.9 % (0.0-6.0); HEMATOCRIT 33 % (39-51); HEMOGLOBIN 10.4 g/dL (13.5-17.5); LYMPHOCYTES # (AUTO) 1.5 K/uL (0.8-4.8); LYMPHOCYTES % (AUTO) 24.8 % (20.0-44.0); MEAN CORPUSCULAR HGB CONC 31 g/dl (31.0-36.0); MEAN CORPUSCULAR VOLUME 78 fL (80-96); MONOCYTES # (AUTO) 0.5 K/uL (0.1-1.30); MONOCYTES % (AUTO) 7.9 % (2.0-12.0); NEUTROPHILS % (AUTO) 65.1 % (43.0-81.0); PLATELET COUNT (AUTO) 171 K/uL (150-450); RED BLOOD CELL COUNT(AUTO) 4.23 MIL/uL (4.5-6.0); WHITE BLOOD COUNT (AUTO) 6.2 K/uL (4.3-11.0)
[2021-02-13 02:58] LABS: CALCIUM, SERUM 8.1 mg/dL (8.5-10.1); CARBON DIOXIDE 34 mmol/L (21-32); CHLORIDE 99 mmol/L (98-107); CREATININE 0.9 mg/dL (0.6-1.3); GLUCOSE 286 mg/dL (74-106); POTASSIUM 3.8 mmol/L (3.5-5.1); SODIUM SERUM 136 mmol/L (136-145); UREA NITROGEN, BLOOD 15 mg/dL (7-18)
--- NOTE | 2021-02-13 03:43 | NUR ---
CALLED [facility] TO HAVE IMAGES READ
[2021-02-13] MEDS ORDERED: INSULIN REGULAR, HUMAN 100 UNIT/ML 10 ML VIAL ONE (03:44)
[2021-02-13] MEDS ORDERED: INS LISP PROT/INS LISPRO 75/25 100 UNIT/ML VIAL SQ ONE (03:59)
[2021-02-13] MEDS ORDERED: INS LISP PROT/INS LISPRO 75/25 100 UNIT/ML VIAL SQ SCH (04:00)
[2021-02-13] MEDS ORDERED: CEPH500C2 PO (05:08)
--- NOTE | 2021-02-13 05:28 | NUR ---
PT OK TO DISCHARGE PER DR TREVINO. Patient discharged to home in stable condition. Written and verbal after care instructions given. Patient verbalizes understanding of instruction.Patient is awake and alert to self, day, and place. PT ambulatory with a steady gait
[2021-02-13 05:49] VITALS: BP 140/77
== END 2021-02-13 05:49 | disposition home or self-care (01) ==
LOC: ER 02-13 00:02
DX: L03.115 Cellulitis of right lower limb (principal); D64.9 Anemia, unspecified; R07.89 Other chest pain; E66.01 Morbid (severe) obesity due to excess calories; Z68.44 Body mass index [BMI] 60.0-69.9, adult; I10 Essential (primary) hypertension; E11.9 Type 2 diabetes mellitus without complications; M86.9 Osteomyelitis, unspecified; Z98.890 Other specified postprocedural states; Z88.1 Allergy status to other antibiotic agents; Z88.8 Allergy status to other drugs, medicaments and biological substances; Z91.018 Allergy to other foods; Z86.73 Personal history of transient ischemic attack (TIA), and cerebral infarction without residual deficits; Z87.891 Personal history of nicotine dependence; Z79.899 Other long term (current) drug therapy; Z79.82 Long term (current) use of aspirin; Z79.84 Long term (current) use of oral hypoglycemic drugs
CPT/HCPCS: 36415; 71045; 80048; 82962; 84484; 85025; 93005; 96372; 99285; J1815 ×3

== ENCOUNTER 2021-03-28 03:10 | Emergency (ER) | payer MEDICAID ==
[~2021-03-28] VITALS: Ht 170.2 cm; Wt 195.0 kg
[~2021-03-28 03:10] MED LIST changes: +CEPH500C2 PO
--- NOTE | 2021-03-28 03:15 | NUR ---
BIBS C/O L SIDED WEAKNESS AND NUMBNESS SINCE 0230. STATES HE HAS HAD 6 STROKES IN THE PAST WITH SIMILIAR L SIDED WEAKNESS. PT ALERT AND ORIENTED X4 BREATHING EVEN AND UNLABORED ANSWERS ALL QUESTIONS CORRECTLY WITHOUT SLURRING OF SPEECH. PT ABLE TO AMBULATE WITHOUT DIFFICULTY BUT REPORTS DECREASED SENSATION TO HIS LEFT SIDE. PT CHANGED INTO A GOWN AND PLACED ON SUPPORT SERVICE TECH AND PULSE OX AND ALL V/S ARE STABLE. WAS AT BEDSIDE FOR EVALUATION.
[2021-03-28 05:28] LABS: BASOPHILS % (AUTO) 0.4 % (0.0-2.0); EOSINOPHILS % (AUTO) 1.3 % (0.0-6.0); HEMATOCRIT 35 % (39-51); HEMOGLOBIN 11.1 g/dL (13.5-17.5); LYMPHOCYTES # (AUTO) 1.4 K/uL (0.8-4.8); LYMPHOCYTES % (AUTO) 24.5 % (20.0-44.0); MEAN CORPUSCULAR HGB CONC 31 g/dl (31.0-36.0); MEAN CORPUSCULAR VOLUME 75 fL (80-96); MONOCYTES # (AUTO) 0.7 K/uL (0.1-1.30); MONOCYTES % (AUTO) 12.3 % (2.0-12.0); NEUTROPHILS # (AUTO) 3.5 K/uL (1.8-8.9); NEUTROPHILS % (AUTO) 61.5 % (43.0-81.0); PLATELET COUNT (AUTO) 163 K/uL (150-450); WHITE BLOOD COUNT (AUTO) 5.7 K/uL (4.3-11.0)
[2021-03-28 05:45] LABS: CALCIUM, SERUM 8.9 mg/dL (8.5-10.1); CREATININE 0.9 mg/dL (0.6-1.3)
[2021-03-28 06:57] VITALS: BP 122/78
--- NOTE | 2021-03-28 07:00 | NUR ---
Patient discharged to home in stable condition. Written and verbal after care instructions given. Patient verbalizes understanding of instruction. IV line discontinued.
== END 2021-03-28 07:10 | disposition home or self-care (01) ==
LOC: ER 03:12
DX: R53.1 Weakness (principal); D64.9 Anemia, unspecified; Z86.73 Personal history of transient ischemic attack (TIA), and cerebral infarction without residual deficits; I10 Essential (primary) hypertension; E11.9 Type 2 diabetes mellitus without complications; M86.9 Osteomyelitis, unspecified; Z98.890 Other specified postprocedural states; Z88.1 Allergy status to other antibiotic agents; Z88.8 Allergy status to other drugs, medicaments and biological substances; Z91.018 Allergy to other foods; Z87.891 Personal history of nicotine dependence; Z79.899 Other long term (current) drug therapy; Z79.82 Long term (current) use of aspirin
CPT/HCPCS: 36415; 71045-TC; 80048-TC; 85025-TC

== ENCOUNTER 2021-04-12 01:09 | Emergency (ER) | payer MEDICAID ==
[~2021-04-12] VITALS: Ht 175.3 cm; Wt 195.0 kg
[2021-04-12 02:00] VITALS: BP 149/97
--- NOTE | 2021-04-12 02:00 | NUR ---
PT BIBS FROM HOME C/O ANXIETY. VSS PT A/OX4. TOLERATING R/A WELL WITH NO SOB.
--- NOTE | 2021-04-12 02:05 | NUR ---
DR LAW DRIVER AT PT'S BEDSIDE
[2021-04-12] MEDS ORDERED: LORAZEPAM 1 MG TABLET ONE (02:13)
[2021-04-12] MEDS ORDERED: LORAZEPAM 1 MG TABLET PO ONE (02:30)
--- NOTE | 2021-04-12 02:30 | NUR ---
Patient discharged to home in stable condition. Written and verbal after care instructions given. Patient verbalizes understanding of instruction. PT ambulatory with a steady gait
== END 2021-04-12 02:31 | disposition home or self-care (01) ==
LOC: ER 01:10
DX: F41.9 Anxiety disorder, unspecified (principal); I10 Essential (primary) hypertension; E11.9 Type 2 diabetes mellitus without complications; M86.9 Osteomyelitis, unspecified; Z86.73 Personal history of transient ischemic attack (TIA), and cerebral infarction without residual deficits; Z98.890 Other specified postprocedural states; Z88.8 Allergy status to other drugs, medicaments and biological substances; Z88.1 Allergy status to other antibiotic agents; Z91.018 Allergy to other foods; Z87.891 Personal history of nicotine dependence; Z79.899 Other long term (current) drug therapy; Z79.84 Long term (current) use of oral hypoglycemic drugs; Z79.82 Long term (current) use of aspirin

== ENCOUNTER 2023-03-20 16:27 | Emergency (ER) | payer MEDICAID, OTHER ==
[~2023-03-20] VITALS: Ht 175.3 cm; Wt 196.4 kg
[2023-03-20 16:59] VITALS: TEMP 98.6
[2023-03-20] MEDS ORDERED: IOHEXOL-350 100 ML VIAL IV ONE (17:19)
[2023-03-20] MEDS ORDERED: TENECTEPLASE 50 MG KIT IV ONE ×2 (17:51→18:00)
[2023-03-20 17:53] LABS: BASOPHILS % (AUTO) 0.2 % (0.0-2.0); EOSINOPHILS % (AUTO) 0.7 % (0.0-6.0); HEMATOCRIT 39 % (39-51); HEMOGLOBIN 12.3 g/dL (13.5-17.5); LYMPHOCYTES # (AUTO) 1.3 K/uL (0.8-4.8); LYMPHOCYTES % (AUTO) 23.8 % (20.0-44.0); MEAN CORPUSCULAR HEMOGLOBIN 23 PG (26.0-33.0); MEAN CORPUSCULAR HGB CONC 32 g/dl (31.0-36.0); MEAN CORPUSCULAR VOLUME 74 fL (80-96); MONOCYTES # (AUTO) 0.4 K/uL (0.1-1.30); MONOCYTES % (AUTO) 8.5 % (2.0-12.0); NEUTROPHILS # (AUTO) 3.5 K/uL (1.8-8.9); NEUTROPHILS % (AUTO) 66.8 % (43.0-81.0); PLATELET COUNT (AUTO) 132 K/uL (150-450); RED BLOOD CELL COUNT(AUTO) 5.26 MIL/uL (4.5-6.0); RED CELL DISTRIBUTION WIDTH 18.5 % (11.5-15.0); WHITE BLOOD COUNT (AUTO) 5.3 K/uL (4.3-11.0)
[2023-03-20] MEDS ORDERED: NORMAL SALINE FLUSH 10 ML SYR IV ONE ×2 (18:00)
[2023-03-20] MEDS ORDERED: TNKASE WASTE DOCUMENTATION IV ONE (18:00)
[2023-03-20 18:03] LABS: CALCIUM, SERUM 8.9 mg/dL (8.5-10.1); CARBON DIOXIDE 31 mmol/L (21-32); CHLORIDE 99 mmol/L (98-107); CREATININE 0.7 mg/dL (0.6-1.3); GLUCOSE 258 mg/dL (74-106); POTASSIUM 4.5 mmol/L (3.5-5.1); SODIUM SERUM 134 mmol/L (136-145); UREA NITROGEN, BLOOD 16 mg/dL (7-18)
[2023-03-20 18:13] LABS: INR 0.99 (0.91-1.10); PARTIAL THROMBOPLASTIN TIME 29.1 SEC (24.3-34.3); PROTHROMBIN TIME 10.5 SECS (9.2-11.1)
[2023-03-20 19:30] VITALS: BP 118/68; O2SAT 97
[2023-03-20 20:54] LABS: ANISOCYTOSIS 1+; HYPOCHROMASIA 1+; LYMPHOCYTES % (MANUAL) 26 % (16-48); MONOCYTES % (MANUAL) 6 % (0-11.0); NEUTROPHILS % (MANUAL) 68 (42-76); PLATELET ESTIMATE DECREASED
== END 2023-03-20 20:24 | disposition short-term general hospital (02) ==
LOC: ER 16:36
DX: I63.9 Cerebral infarction, unspecified (principal); R07.89 Other chest pain; E11.9 Type 2 diabetes mellitus without complications; F17.200 Nicotine dependence, unspecified, uncomplicated; Z20.822 Contact with and (suspected) exposure to COVID-19; Z79.899 Other long term (current) drug therapy; Z98.890 Other specified postprocedural states; Z88.5 Allergy status to narcotic agent; Z88.1 Allergy status to other antibiotic agents
CPT/HCPCS: 99291; 96374; 70450; 87426; 93005 ×2; 71045; 85025; 80048; 36415; 84484; 85730; 82962; 85007; J3101; Q9967

== ENCOUNTER 2023-04-05 15:06 | Emergency (ER) | payer OTHER ==
[~2023-04-05] VITALS: Ht 175.3 cm; Wt 195.0 kg
[2023-04-05 16:40] LABS: BASOPHILS % (AUTO) 0.7 % (0.0-2.0); EOSINOPHILS % (AUTO) 0.4 % (0.0-6.0); HEMATOCRIT 43 % (39-51); HEMOGLOBIN 13.6 g/dL (13.5-17.5); LYMPHOCYTES # (AUTO) 1.1 K/uL (0.8-4.8); LYMPHOCYTES % (AUTO) 18.7 % (20.0-44.0); MEAN CORPUSCULAR HEMOGLOBIN 24 PG (26.0-33.0); MEAN CORPUSCULAR HGB CONC 32 g/dl (31.0-36.0); MEAN CORPUSCULAR VOLUME 76 fL (80-96); MONOCYTES # (AUTO) 0.3 K/uL (0.1-1.30); MONOCYTES % (AUTO) 5.9 % (2.0-12.0); NEUTROPHILS # (AUTO) 4.4 K/uL (1.8-8.9); NEUTROPHILS % (AUTO) 74.3 % (43.0-81.0); PLATELET COUNT (AUTO) 118 K/uL (150-450); RED BLOOD CELL COUNT(AUTO) 5.67 MIL/uL (4.5-6.0); RED CELL DISTRIBUTION WIDTH 18.8 % (11.5-15.0); WHITE BLOOD COUNT (AUTO) 5.9 K/uL (4.3-11.0)
[2023-04-05 16:54] LABS: ALANINE AMINOTRANSFERASE 8 U/L (12-78); ALKALINE PHOSPHATASE 132 U/L (46-116); ASPARTATE AMINOTRANSFERASE 11 U/L (15-37); BILIRUBIN,DIRECT 0.2 mg/dL (0.0-0.2); BILIRUBIN,TOTAL 0.8 mg/dL (0.2-1.0); CALCIUM, SERUM 9.2 mg/dL (8.5-10.1); CARBON DIOXIDE 31 mmol/L (21-32); CHLORIDE 99 mmol/L (98-107); CREATININE 0.7 mg/dL (0.6-1.3); GLUCOSE 146 mg/dL (74-106); POTASSIUM 4.1 mmol/L (3.5-5.1); SODIUM SERUM 138 mmol/L (136-145); TOTAL PROTEIN, SERUM 7.2 g/dL (6.4-8.2); UREA NITROGEN, BLOOD 19 mg/dL (7-18)
[2023-04-05 16:59] LABS: INR 1.02 (0.91-1.10); PARTIAL THROMBOPLASTIN TIME 29.9 SEC (24.3-34.3); PROTHROMBIN TIME 10.8 SECS (9.2-11.1)
[2023-04-05 17:00] LABS: LACTIC ACID 1.8 mmol/L (0.4-2.0)
[2023-04-05] MEDS ORDERED: GUAI-671 PO (18:45)
[2023-04-06 06:17] VITALS: BP 114/56; TEMP 98; O2SAT 97
== END 2023-04-06 13:06 ==
LOC: ER 15:08
DX: J21.9 Acute bronchiolitis, unspecified (principal); I10 Essential (primary) hypertension; E11.9 Type 2 diabetes mellitus without complications; Z88.8 Allergy status to other drugs, medicaments and biological substances; Z91.018 Allergy to other foods; Z79.4 Long term (current) use of insulin; Z79.84 Long term (current) use of oral hypoglycemic drugs; Z79.899 Other long term (current) drug therapy; Z20.822 Contact with and (suspected) exposure to COVID-19
CPT/HCPCS: 36415; 71045-TC; 80048-TC; 80076-TC; 83605-TC; 84484-TC; 85025-TC; 85730-TC; 87040-TC

== ENCOUNTER 2025-02-12 01:15 | Emergency (ER) | payer MEDICAID, OTHER ==
[~2025-02-12] VITALS: Ht 175.3 cm; Wt 184.2 kg
[~2025-02-12 01:15] MED LIST changes: +GUAI-671 PO
[2025-02-12 03:32] LABS: PLATELET COUNT (AUTO) 137 K/uL (150-450); RED BLOOD CELL COUNT(AUTO) 5.15 MIL/uL (4.5-6.0); RED CELL DISTRIBUTION WIDTH 16.0 % (11.5-15.0); WHITE BLOOD COUNT (AUTO) 6.8 K/uL (4.3-11.0)
[2025-02-12 04:31] LABS: CALCIUM, SERUM 8.7 mg/dL (8.5-10.1); SODIUM SERUM 140.0 mmol/L (136-145)
[2025-02-12 04:32] LABS: ASPARTATE AMINOTRANSFERASE 7.0 U/L (15-37); CREATININE 0.8 mg/dL (0.6-1.3); NT-PRO BNP 112.0 pg/mL (0-125); UREA NITROGEN, BLOOD 18.0 mg/dL (7-18)
[2025-02-12 04:33] LABS: TOTAL PROTEIN, SERUM 6.9 g/dL (6.4-8.2)
[2025-02-12 05:26] VITALS: BP 144/87; TEMP 98.6; O2SAT 98
== END 2025-02-12 05:26 | disposition home or self-care (01) ==
LOC: ER 01:18
DX: R07.89 Other chest pain (principal); E11.9 Type 2 diabetes mellitus without complications; F17.200 Nicotine dependence, unspecified, uncomplicated; F60.3 Borderline personality disorder; H54.8 Legal blindness, as defined in USA; E66.01 Morbid (severe) obesity due to excess calories; R06.02 Shortness of breath; I11.9 Hypertensive heart disease without heart failure; Z79.4 Long term (current) use of insulin; Z79.82 Long term (current) use of aspirin; Z79.84 Long term (current) use of oral hypoglycemic drugs; Z79.899 Other long term (current) drug therapy; Z88.0 Allergy status to penicillin; Z88.1 Allergy status to other antibiotic agents; Z89.512 Acquired absence of left leg below knee; Z99.3 Dependence on wheelchair
CPT/HCPCS: 36415; 71045-TC; 80053-TC; 83735-TC; 83880; 84484-TC; 85025-TC